=== PATIENT | female | born 1975 | race Caucasian/White ===

== ENCOUNTER 2017-07-20 18:10 | Observation (INO) | payer MEDICAID, OTHER ==
[~2017-07-20] VITALS: Ht 172.7 cm; Wt 62.0 kg
[2017-07-20 18:10] VITALS: BP 142/85; PULSE 70; RESP 16; TEMP 99.2; O2SAT 100
[~2017-07-20 18:10] MED LIST: CETI10 PO; DIFL150T PO; METO50TA PO; SERT50 PO
[2017-07-20] MEDS ORDERED: IOHEXOL 350 MG/ML 10 ML VIAL (for RAD DIAG) IVCONTRAST ONE (18:11)
[2017-07-20 18:45] LABS: BACTERIA, URINE RARE /hpf; BASOPHIL % 0.5 % (0.0-2.0); BLOOD, URINE NEG (NEG); COMMENT (UR) CULT NOT INDICATED; CULTURE IF INDICATED CULT NOT INDICATED; EOSINOPHIL % 0.6 % (0.0-4.0); GLUCOSE,URINE NEG (NEG); HEMATOCRIT 38.1 % (35.0-46.0); HEMO FLAGS DIFF FINAL; KETONE, URINE NEG (NEG); LYMPHOCYTE # 2.4 TH/MM3 (1.0-4.8); MEAN CELL VOLUME 92.8 FL (80.0-100.0); MEAN CORPUSCULAR HEMOGLOBIN 30.5 PG (27.0-34.0); MEAN CORPUSCULAR HGB CONC 32.9 % (32.0-36.0); MONO % 8.4 % (0.0-8.0); NEUT % 56.5 % (16.0-70.0); NITRITE,URINE NEG (NEG); PH, URINE 7.5 (5.0-8.5); PLATELET COUNT 185 TH/MM3 (150-450); RED CELL DISTRIBUTION WIDTH 13.9 % (11.6-17.2); SQUAMOUS EPITHELIAL CELL URINE <1 /hpf (0-5); URINE COLOR YELLOW (YELLW/STRAW); WHITE BLOOD COUNT 7.1 TH/MM3 (4.0-11.0)
--- NOTE | 2017-07-20 18:54 | PD ---
HPI Chief Complaint: Abdominal Pain Time Seen by Provider: 18:46 Travel History International Travel<30 days: No Contact w/Intl Traveler<30days: No Traveled to known affect area: No History of Present Illness HPI 42 year-old female resents the emergency department for evaluation of right upper and lower quadrant abdominal pain with associated nausea, vomiting, and diarrhea worsening over the last week. Patient states that she has history of colitis and is uncertain if this is related to that. She saw a GI on Tuesday and was advised to stop her Zoloft. She spoke with her primary care provider who switched her to Prozac and stopped the Zoloft this week. She is uncertain if this has made her symptoms worse. She does report today that she had an episode where she felt bilateral upper extremity tingling and had a headache and noticed that her heart rate was in the 30s. This resolved on its own. She does take metoprolol for high blood pressure. Patient also has a history of neurocardiogenic syncope, mitral valve prolapse, and depression. Patient has felt chilled without fever. She denies chest pain or tightness. No difficulty breathing. Her brother did pass away "young" from a cardiac event, exactly what she is not sure of. PFSH Past Medical History Depression: Yes Cardiovascular Problems: Yes (MVP) Gastrointestinal Disorders: Yes (IBS) Neurologic: Yes (NEUROCARDOGENIC SYNCOPEY) ?: Not Past Surgical History Section: Yes Other Surgery: Yes (CYST REMOVAL) Social History Alcohol Use: Yes (RARE) Tobacco Use: No Substance Use: No Allergies-Medications (Allergen,Severity, Reaction): Coded Allergies: codeine (Unverified Allergy, Severe, Nausea/Vomiting, 05/31/17) Reported Meds & Prescriptions Reported Meds & Active Scripts Active Reported Fluoxetine (Fluoxetine HCl) 20 Mg Capsule 20 Mg PO DAILY Sulfasalazine 500 Mg Tab 500 Mg PO Q8H Fluticasone Nasal [place] 50 Mcg/Act Naspr 50 Mcg EACH NARE BID 50 mcg/spray Metoprolol Tartrate 50 Mg Tab 50 Mg PO BID Review of Systems Except as stated in HPI: all other systems reviewed are Neg Physical Exam Narrative GENERAL: Well-nourished female patient, in no acute distress. SKIN: Focused skin assessment warm/dry. HEAD: Atraumatic. Normocephalic. EYES: Pupils equal and round. No scleral icterus. No injection or drainage. ENT: No nasal bleeding or discharge. Mucous membranes pink and moist. NECK: Trachea midline. No JVD. CARDIOVASCULAR: Regular rate and irregular rhythm. RESPIRATORY: No accessory muscle use. Clear to auscultation. Breath sounds equal bilaterally. GASTROINTESTINAL: Abdomen soft, nondistended. Lower abdominal tenderness. No rebound and no guarding. Hepatic and splenic margins not palpable. MUSCULOSKELETAL: No obvious deformities. No clubbing. No cyanosis. No edema. NEUROLOGICAL: Awake and alert. No obvious cranial nerve deficits. Motor grossly within normal limits. Normal speech. PSYCHIATRIC: Appropriate mood and affect; insight and judgment normal. Data Data Last Documented VS Vital Signs Date Time Temp Pulse Resp B/P (MAP) Pulse Ox O2 Delivery O2 Flow Rate FiO2 07/20/17 19:01 55 16 135/67 (89) 100 Room Air 07/20/17 18:10 99.2 Orders Orders Complete Blood Count With Diff (07/20/17 18:18) Comprehensive Metabolic Panel (07/20/17 18:18) Urinalysis - C+S If Indicated (07/20/17 18:18) Ed Urine Pregnancytest Poc (07/20/17 18:18) Lipase (07/20/17 18:18) Iv Access Insert/Monitor (07/20/17 18:50) Ct Abd/Pel W Iv Contrast(Rout) (07/20/17 ) Electrocardiogram (07/20/17 19:38) Ckmb (Isoenzyme) Profile (07/20/17 19:38) Prothrombin Time / Inr (Pt) (07/20/17 19:38) Act Partial Throm Time (Ptt) (07/20/17 19:38) Troponin I (07/20/17 19:38) Chest, Single Ap (07/20/17 19:38) Orthostatic Blood Pressure (07/20/17 19:52) Labs Laboratory Tests Test 07/20/17 18:20 07/20/17 20:00 White Blood Count 7.1 TH/MM3 Red Blood Count 4.10 MIL/MM3 Hemoglobin 12.5 GM/DL Hematocrit 38.1 % Mean Corpuscular Volume 92.8 FL Mean Corpuscular Hemoglobin 30.5 PG Mean Corpuscular Hemoglobin Concent 32.9 % Red Cell Distribution Width 13.9 % Platelet Count 185 TH/MM3 Mean Platelet Volume 10.5 FL Neutrophils (%) (Auto) 56.5 % Lymphocytes (%) (Auto) 34.0 % Monocytes (%) (Auto) 8.4 % Eosinophils (%) (Auto) 0.6 % Basophils (%) (Auto) 0.5 % Neutrophils # (Auto) 4.0 TH/MM3 Lymphocytes # (Auto) 2.4 TH/MM3 Monocytes # (Auto) 0.6 TH/MM3 Eosinophils # (Auto) 0.0 TH/MM3 Basophils # (Auto) 0.0 TH/MM3 CBC Comment DIFF FINAL Differential Comment Urine Color YELLOW Urine Turbidity CLEAR Urine pH 7.5 Urine Specific [place] 1.011 Urine Protein NEG mg/dL Urine Glucose (UA) NEG mg/dL Urine Ketones NEG mg/dL Urine Occult Blood NEG Urine Nitrite NEG Urine Bilirubin NEG Urine Urobilinogen LESS THAN 2.0 MG/DL Urine Leukocyte Esterase NEG Urine RBC 1 /hpf Urine WBC LESS THAN 1 /hpf Urine Squamous Epithelial Cells <1 /hpf Urine Bacteria RARE /hpf Microscopic Urinalysis Comment CULT NOT INDICATED Blood Urea Nitrogen 12 MG/DL Creatinine 0.87 MG/DL Random Glucose 79 MG/DL Total Protein 7.2 GM/DL Albumin 4.1 GM/DL Calcium Level 9.0 MG/DL Alkaline Phosphatase 59 U/L Aspartate Amino Transf (AST/SGOT) 10 U/L Alanine Aminotransferase (ALT/SGPT) 18 U/L Total Bilirubin 0.3 MG/DL Sodium Level 140 MEQ/L Potassium Level 3.6 MEQ/L Chloride Level 105 MEQ/L Carbon Dioxide Level 29.1 MEQ/L Anion Gap 6 MEQ/L Estimat Glomerular Filtration Rate 72 ML/MIN Total Creatine Kinase 31 U/L Troponin I LESS THAN 0.02 NG/ML Lipase 115 U/L [facility] Medical Decision Making Medical Screen Exam Complete: Yes Emergency Medical Condition: Yes Medical Record Reviewed: Yes Differential Diagnosis Colitis versus diverticulitis versus appendicitis versus cholecystitis versus gastroenteritis Narrative Course 42 year-old female presents to emergency department for evaluation of right sided abdominal pain. Patient does have lower abdominal pain tenderness to palpation. Due to history of colitis, CT imaging is ordered. Laboratory Tests Test 07/20/17 18:20 07/20/17 20:00 White Blood Count 7.1 TH/MM3 Red Blood Count 4.10 MIL/MM3 Hemoglobin 12.5 GM/DL Hematocrit 38.1 % Mean Corpuscular Volume 92.8 FL Mean Corpuscular Hemoglobin 30.5 PG Mean Corpuscular Hemoglobin Concent 32.9 % Red Cell Distribution Width 13.9 % Platelet Count 185 TH/MM3 Mean Platelet Volume 10.5 FL Neutrophils (%) (Auto) 56.5 % Lymphocytes (%) (Auto) 34.0 % Monocytes (%) (Auto) 8.4 % Eosinophils (%) (Auto) 0.6 % Basophils (%) (Auto) 0.5 % Neutrophils # (Auto) 4.0 TH/MM3 Lymphocytes # (Auto) 2.4 TH/MM3 Monocytes # (Auto) 0.6 TH/MM3 Eosinophils # (Auto) 0.0 TH/MM3 Basophils # (Auto) 0.0 TH/MM3 CBC Comment DIFF FINAL Differential Comment Urine Color YELLOW Urine Turbidity CLEAR Urine pH 7.5 Urine Specific [place] 1.011 Urine Protein NEG mg/dL Urine Glucose (UA) NEG mg/dL Urine Ketones NEG mg/dL Urine Occult Blood NEG Urine Nitrite NEG Urine Bilirubin NEG Urine Urobilinogen LESS THAN 2.0 MG/DL Urine Leukocyte Esterase NEG Urine RBC 1 /hpf Urine WBC LESS THAN 1 /hpf Urine Squamous Epithelial Cells <1 /hpf Urine Bacteria RARE /hpf Microscopic Urinalysis Comment CULT NOT INDICATED Blood Urea Nitrogen 12 MG/DL Creatinine 0.87 MG/DL Random Glucose 79 MG/DL Total Protein 7.2 GM/DL Albumin 4.1 GM/DL Calcium Level 9.0 MG/DL Alkaline Phosphatase 59 U/L Aspartate Amino Transf (AST/SGOT) 10 U/L Alanine Aminotransferase (ALT/SGPT) 18 U/L Total Bilirubin 0.3 MG/DL Sodium Level 140 MEQ/L Potassium Level 3.6 MEQ/L Chloride Level 105 MEQ/L Carbon Dioxide Level 29.1 MEQ/L Anion Gap 6 MEQ/L Estimat Glomerular Filtration Rate 72 ML/MIN Total Creatine Kinase 31 U/L Troponin I LESS THAN 0.02 NG/ML Lipase 115 U/L Prothrombin Time 10.7 SEC Prothromb Time International Ratio 1.0 RATIO Activated Partial Thromboplast Time 27.9 SEC While the patient is waiting for CT to be medically, she begins to have symptoms of hand tingling, headache. Her heart rate is noted to be in the mid 30s. EKG is completely shows SR with frequent PVCs in a bigeminy pattern. This then resolved back to normal sinus rhythm in the symptoms resolve. 2100 Care is assumed by Dr. Horner. Condition: Stable Renate Lemos Jul 20, 2017 18:54
[2017-07-20 19:01] VITALS: BP 135/67; PULSE 55; RESP 16; O2SAT 100
[2017-07-20] MEDS ORDERED: SULF500T3 PO (19:01)
[2017-07-20] MEDS ORDERED: FLUO20CA12 PO (19:01)
[2017-07-20] MEDS ORDERED: METO50TA PO (19:01)
[2017-07-20] MEDS ORDERED: FLUT50SP EACH NARE (19:01)
[2017-07-20 19:02] LABS: ANION GAP 6 MEQ/L (5-15); AST (GOT) 10 U/L (15-37); BICARBONATE 29.1 MEQ/L (21.0-32.0); BLOOD UREA NITROGEN 12 MG/DL (7-18); CHLORIDE 105 MEQ/L (98-107); GLOMERULAR FILTRATION RATE 72 ML/MIN (>89); POTASSIUM 3.6 MEQ/L (3.5-5.1); SODIUM (NA) 140 MEQ/L (136-145)
[2017-07-20 19:05] LABS: ALKALINE PHOSPHATASE 59 U/L (45-117); ALT (GPT) 18 U/L (10-53); TOTAL BILIRUBIN ADULT 0.3 MG/DL (0.2-1.0)
[2017-07-20 20:30] LABS: CREATINE KINASE 31 U/L (26-192)
[2017-07-20 20:55] LABS: APTT (PATIENT) 27.9 SEC (24.3-30.1); PROTHROMBIN TIME - PATIENT 10.7 SEC (9.8-11.6)
--- NOTE | 2017-07-20 21:01 | RADRPT ---
EXAM DATE/TIME: 07/20/2017 19:51 [facility] COMPARISON: No previous studies available for comparison. INDICATIONS : Chest pain and shortness of breath. MEDICAL HISTORY : None. SURGICAL HISTORY : None. ENCOUNTER: Initial ACUITY: 1 day PAIN SCORE: 5/10 LOCATION: chest FINDINGS: A single view of the chest demonstrates the lungs to be symmetrically aerated without evidence of mas s, infiltrate or effusion. The cardiomediastinal contours are unremarkable. Osseous structures are intact. CONCLUSION: Normal examination. Elmer Green MD on July 20, 2017 at 20:59 Board Certified Radiologist. This report was verified electronically.
--- NOTE | 2017-07-20 22:10 | RADRPT ---
EXAM DATE/TIME: 07/20/2017 20:44 [facility] COMPARISON: No previous studies available for comparison. INDICATIONS : Upper and lower quadrant pain, nausea and vomiting. IV CONTRAST: 95 cc Omnipaque 350 (iohexol) IV ORAL CONTRAST: No oral contrast ingested. RADIATION DOSE: 6.76 CTDIvol (mGy) MEDICAL HISTORY : Cardiovascular disease. SURGICAL HISTORY : Cholecystectomy. ENCOUNTER: Initial ACUITY: 2 days PAIN SCALE: 8/10 LOCATION: Lower quadrant and upper quadrant TECHNIQUE: Volumetric scanning of the abdomen and pelvis was performed. Using automated exposure control and adjustment of the mA and/or kV according to patient size, radiation dose was kept as low as reasonably achievable to obtain optimal diagnostic quality images. DICOM format image data is av ailable electronically for review and comparison. FINDINGS: The liver is free of focal lesions. There is mild intrahepatic biliary ductal dilatati on. The patient is status post cholecystectomy. The common bile duct measures 0.9 cm. This may refl ect a reservoir phenomenon following cholecystectomy. The spleen, pancreas, adrenal glands and kidne ys appear normal. The aorta and IVC are unremarkable. Significantly dilated bowel is not seen. Ther e is punctate high density material seen throughout the colon likely related to ingested material suc h as Pepto-Bismol or Milk of Magnesia. The appendix appears normal. Significant inflammatory change is not seen. The left ovary contains several cysts likely related to follicles. These measure up to 1.6 cm. Free fluid is not seen in the pelvis. The lung bases are clear. The bony structures are in tact. CONCLUSION: 1. No acute abnormality is seen. 2. Mild dilatation of the intrahepatic and extrahepatic biliary ducts. This may reflect a reservoir p henomenon following cholecystectomy. This should be correlated clinically and with the patient's lab oratory findings. 3. Punctate high density material seen throughout the colon likely from ingested material. Elmer Green MD on July 20, 2017 at 21:53 Board Certified Radiologist. This report was verified electronically.
--- NOTE | 2017-07-20 22:39 | PD ---
Data Data Last Documented VS Vital Signs Date Time Temp Pulse Resp B/P (MAP) Pulse Ox O2 Delivery O2 Flow Rate FiO2 07/20/17 19:01 55 16 135/67 (89) 100 Room Air 07/20/17 18:10 99.2 Orders Orders Complete Blood Count With Diff (07/20/17 18:18) Comprehensive Metabolic Panel (07/20/17 18:18) Urinalysis - C+S If Indicated (07/20/17 18:18) Ed Urine Pregnancytest Poc (07/20/17 18:18) Lipase (07/20/17 18:18) Iv Access Insert/Monitor (07/20/17 18:50) Ct Abd/Pel W Iv Contrast(Rout) (07/20/17 ) Electrocardiogram (07/20/17 19:38) Ckmb (Isoenzyme) Profile (07/20/17 19:38) Prothrombin Time / Inr (Pt) (07/20/17 19:38) Act Partial Throm Time (Ptt) (07/20/17 19:38) Troponin I (07/20/17 19:38) Chest, Single Ap (07/20/17 19:38) Orthostatic Blood Pressure (07/20/17 19:52) Iohexol 350 Inj (Omnipaque 350 Inj) (07/20/17 18:11) Potassium Chlor 20 Meq Premix (Kcl 20 Me (07/20/17 22:45) Magnesium (Mg) (07/20/17 22:33) Methylprednisolone So Succ Inj (Solumedr (07/20/17 22:45) Labs Laboratory Tests Test 07/20/17 18:20 07/20/17 20:00 White Blood Count 7.1 TH/MM3 Red Blood Count 4.10 MIL/MM3 Hemoglobin 12.5 GM/DL Hematocrit 38.1 % Mean Corpuscular Volume 92.8 FL Mean Corpuscular Hemoglobin 30.5 PG Mean Corpuscular Hemoglobin Concent 32.9 % Red Cell Distribution Width 13.9 % Platelet Count 185 TH/MM3 Mean Platelet Volume 10.5 FL Neutrophils (%) (Auto) 56.5 % Lymphocytes (%) (Auto) 34.0 % Monocytes (%) (Auto) 8.4 % Eosinophils (%) (Auto) 0.6 % Basophils (%) (Auto) 0.5 % Neutrophils # (Auto) 4.0 TH/MM3 Lymphocytes # (Auto) 2.4 TH/MM3 Monocytes # (Auto) 0.6 TH/MM3 Eosinophils # (Auto) 0.0 TH/MM3 Basophils # (Auto) 0.0 TH/MM3 CBC Comment DIFF FINAL Differential Comment Urine Color YELLOW Urine Turbidity CLEAR Urine pH 7.5 Urine Specific [place] 1.011 Urine Protein NEG mg/dL Urine Glucose (UA) NEG mg/dL Urine Ketones NEG mg/dL Urine Occult Blood NEG Urine Nitrite NEG Urine Bilirubin NEG Urine Urobilinogen LESS THAN 2.0 MG/DL Urine Leukocyte Esterase NEG Urine RBC 1 /hpf Urine WBC LESS THAN 1 /hpf Urine Squamous Epithelial Cells <1 /hpf Urine Bacteria RARE /hpf Microscopic Urinalysis Comment CULT NOT INDICATED Blood Urea Nitrogen 12 MG/DL Creatinine 0.87 MG/DL Random Glucose 79 MG/DL Total Protein 7.2 GM/DL Albumin 4.1 GM/DL Calcium Level 9.0 MG/DL Alkaline Phosphatase 59 U/L Aspartate Amino Transf (AST/SGOT) 10 U/L Alanine Aminotransferase (ALT/SGPT) 18 U/L Total Bilirubin 0.3 MG/DL Sodium Level 140 MEQ/L Potassium Level 3.6 MEQ/L Chloride Level 105 MEQ/L Carbon Dioxide Level 29.1 MEQ/L Anion Gap 6 MEQ/L Estimat Glomerular Filtration Rate 72 ML/MIN Total Creatine Kinase 31 U/L Troponin I LESS THAN 0.02 NG/ML Lipase 115 U/L Prothrombin Time 10.7 SEC Prothromb Time International Ratio 1.0 RATIO Activated Partial Thromboplast Time 27.9 SEC MDM Supervised Visit with [facility]: Yes Narrative Course I, Dr. Horner, have reviewed the advance practice practitioner's documentation and am in agreement, met with the patient face to face, made the diagnosis, and the medical decision making was done by me. See her note for further details. Briefly this is a 42-year-old female with history of lymphocytic colitis on sulfasalazine, here for evaluation of worsening abdominal pain over the last few days, diarrhea. On exam she has moderate diffuse tenderness without peritoneal signs. CBC and CMP are unremarkable. All in the emergency department the patient became bradycardic with a heart rate in the 30s and became symptomatic with lightheadedness and bilateral arm paresthesias. EKG was performed and shows the patient is in bigeminy with a ventricular rate of 76 bpm. Blood pressure has been normal to slightly elevated. CT abdomen pelvis: CONCLUSION: 1. No acute abnormality is seen. 2. Mild dilatation of the intrahepatic and extrahepatic biliary ducts. This may reflect a reservoir phenomenon following cholecystectomy. This should be correlated clinically and with the patient's laboratory findings. 3. Punctate high density material seen throughout the colon likely from ingested material. Patient was made aware of all findings. She continues to complain of abdominal discomfort. Case discussed with on-call [facility] physician Dr. Patino. Plan is to provide the patient parenteral potassium, IV fluids, and a dose of IV Solu-Medrol. She will be admitted for overnight observation for telemetry monitoring. Diagnosis Primary Impression: Intractable abdominal pain Additional Impressions: Bradycardia Bigeminy Condition: Stable Pipe Horner MD Jul 20, 2017 22:39
[2017-07-20] MEDS ORDERED: POTASSIUM CHLOR 20 MEQ PREMIX 100 ML IV SCH (22:45)
[2017-07-20] MEDS ORDERED: methylPREDNISolone SOD SUCC 125 MG/2 ML VIAL IV PUSH ONE (22:45)
[2017-07-20] MEDS ORDERED: traMADol HCL 50 MG TAB PO PRN (23:00)
[2017-07-21] VITALS (14 sets, daily range): BP systolic 100–140; BP diastolic 56–75; PULSE 42–98; RESP 18–20; TEMP 98–99; O2SAT 89–99
[2017-07-21] MEDS ORDERED: POTASSIUM CHLORIDE 20 MEQ CONTROLLED RELEASE TAB PO ONE (00:45)
[2017-07-21] MEDS: SODIUM CHLOR 0.9% 1000 ML INJ 1,000 ML IV SCH ×3 (01:03→21:02)
[2017-07-21 08:17] LABS: POTASSIUM 3.9 MEQ/L (3.5-5.1)
--- NOTE | 2017-07-21 08:21 | HHI.HP ---
HPI Service [facility] Hospitalists Primary Care Physician Kerry Upton MD Admission Diagnosis intractable abdominal pain, bradycardia, bigeminy Chief Complaint: Diarrhea, abd pain Travel History International Travel<30 Days: No Contact w/Intl Traveler <30 Da: No Traveled to Known Affected Are: No History of Present Illness Mrs. Bean is a 42 y/o WF with IBS, Lymphocytic colitis, hx of neurocardiogenic syncope on metoprolol and OCD. She presented to the ED at [facility] [place] on 07/20/17 with complaints of worsening diarrhea, abdominal pain, bradycardia and transient paresthesias in her hands. Pt reports that she has had longstanding issues with diarrhea and abdominal pain, since around age 19. She was previously diagnosed with IBS. She notes that it was not unusual for her to have anywhere from 2-10 BMs per day. Pt was seen by [facility] earlier this year and underwent evaluation with EGD and colonoscopy on 03/31/[address] Monzon. The findings of the procedure were normal but random biopsy from the colon indicated possible lymphocytic colitis. Biopsy of the duodenum was negative for celiac disease. She was started on Sulfasalazine 500mg TID but states that she had not noticed much improvement. She was still having upwards of 10 BMs per day typically. No associated hematochezia or melena. She does have associated abdominal cramping and sharp pain, mainly in the lower abdomen. These pains only temporarily improved with BMs. She went to see a different GI physician, Dr. Flores, on Tuesday, 07/18, because she started having increased diarrhea and more right sided abdominal pain which was new. She states that he recommended changing her Zoloft to something else as this could be a cause for worsening symptoms related to her lymphocytic colitis. She was switched to Prozac which she started yesterday. He also recommended that she also take Pepto Bismol two tablets 3-5 times per day and she started taking that yesterday as well. Yesterday afternoon she reported having an episode where she felt bilateral upper extremity tingling and had a headache and noticed that her heart rate was in the 30s. This resolved on its own fairly quickly. This prompted her to go to the ED for further evaluation. She had an EKG in the ED which noted sinus rhythm in the 70's with frequent PVCs, in a bigeminy pattern. Her telemetry in the CDU has not indicated any cardiac dysrhythmias. She had a CT Abd/pelvis in the ED which noted mild dilation of the intrahepatic and extrahepatic ducts, possible related to a reservoir phenomenon following cholecystectomy, and punctate high density material seen throughout the colon, likely from ingested material. She has not had any diarrhea since prior to admission to the ED. She continues to have right sided abdominal tenderness and nausea but no vomiting. Pt has been afebrile. She denies any recent antibiotic use. Denies any recent travel. No new medications other than what she started yesterday. Pt also reports an intentional weight loss of around 40lbs since 11/2016. She started on a gluten free/dairy free/paleo diet. Review of Systems Constitutional: COMPLAINS OF: Weight loss (intentional), DENIES: Fever, Chills Eyes: DENIES: Vision loss Ears, nose, mouth, throat: DENIES: Vertigo Respiratory: DENIES: Cough, Shortness of breath Cardiovascular: COMPLAINS OF: Palpitations, DENIES: Chest pain, Dyspnea on Exertion, Lower Extremity Edema Gastrointestinal: COMPLAINS OF: Abdominal pain, Diarrhea, GERD, Nausea, Vomiting, DENIES: Black stools, Bloody stools, Constipation Musculoskeletal: DENIES: Joint pain Integumentary: DENIES: Rash Hematologic/lymphatic: DENIES: Lymphadenopathy Immunologic/allergic: DENIES: Urticaria Neurologic: COMPLAINS OF: Paresthesias, DENIES: Headache, Speech Problems, Tremor Psychiatric: DENIES: Confusion, Depression Past Family Social History Past Medical History HTN IBS Lymphocytic colitis Neurocardiogenic syncope Mitral valve prolapse OCD Past Surgical History EGD/colonoscopy (03/31/2017) with Dr. Monzon --> Normal EGD and colonoscopy. 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 Physical Exam Vital Signs Vital Signs Date Time Temp Pulse Resp B/P (MAP) Pulse Ox O2 Delivery O2 Flow Rate FiO2 07/21/17 04:00 98.1 66 20 100/62 (75) 98 07/21/17 03:41 86 07/21/17 01:23 79 07/21/17 00:26 07/21/17 00:17 68 18 124/75 (91) 71 18 129/57 (81) 71 18 140/60 (86) 07/21/17 00:00 98.6 50 18 118/70 (86) 98 07/20/17 19:01 55 16 135/67 (89) 100 Room Air 07/20/17 18:10 99.2 70 16 142/85 (104) 100 Room Air Physical Exam GENERAL: This is a well-nourished, well-developed patient, in no apparent distress. HEENT: Atraumatic. Normocephalic. No temporal or scalp tenderness. No scleral icterus. Airway patent. NECK: Trachea midline, supple, nontender. CARDIO: Regular. RESP: CTA bilaterally. No wheezes, rales, or rhonchi. ABD: +BS, soft, mild right sided tenderness, nondistended. EXT: Extremities without clubbing, cyanosis, or edema. NEURO: Awake and alert. Motor and sensory grossly within normal limits. Normal speech. Laboratory Laboratory Tests Test 07/20/17 18:20 07/20/17 20:00 07/21/17 06:58 White Blood Count 7.1 Red Blood Count 4.10 Hemoglobin 12.5 Hematocrit 38.1 Mean Corpuscular Volume 92.8 Mean Corpuscular Hemoglobin 30.5 Mean Corpuscular Hemoglobin Concent 32.9 Red Cell Distribution Width 13.9 Platelet Count 185 Mean Platelet Volume 10.5 Neutrophils (%) (Auto) 56.5 Lymphocytes (%) (Auto) 34.0 Monocytes (%) (Auto) 8.4 Eosinophils (%) (Auto) 0.6 Basophils (%) (Auto) 0.5 Neutrophils # (Auto) 4.0 Lymphocytes # (Auto) 2.4 Monocytes # (Auto) 0.6 Eosinophils # (Auto) 0.0 Basophils # (Auto) 0.0 CBC Comment DIFF FINAL Differential Comment Urine Color YELLOW Urine Turbidity CLEAR Urine pH 7.5 Urine Specific [place] 1.011 Urine Protein NEG Urine Glucose (UA) NEG Urine Ketones NEG Urine Occult Blood NEG Urine Nitrite NEG Urine Bilirubin NEG Urine Urobilinogen LESS THAN 2.0 Urine Leukocyte Esterase NEG Urine RBC 1 Urine WBC LESS THAN 1 Urine Squamous Epithelial Cells <1 Urine Bacteria RARE Microscopic Urinalysis Comment CULT NOT INDICATED Blood Urea Nitrogen 12 Creatinine 0.87 Random Glucose 79 Total Protein 7.2 Albumin 4.1 Calcium Level 9.0 Alkaline Phosphatase 59 Aspartate Amino Transf (AST/SGOT) 10 Alanine Aminotransferase (ALT/SGPT) 18 Total Bilirubin 0.3 Sodium Level 140 Potassium Level 3.6 Chloride Level 105 Carbon Dioxide Level 29.1 Anion Gap 6 Estimat Glomerular Filtration Rate 72 Magnesium Level 2.1 Total Creatine Kinase 31 Troponin I LESS THAN 0.02 Lipase 115 Prothrombin Time 10.7 Prothromb Time International Ratio 1.0 Activated Partial Thromboplast Time 27.9 Result Diagram: 07/20/17181907/20/171819 Imaging Last Impressions Chest X-Ray 07/20/171937 Signed Impressions: Service Date/Time: Thursday, July 20, 2017 19:51 - CONCLUSION: Normal examination. Elmer Green MD Septic Shock Reassessment Heart: Regular rate and rhythm Lungs: Clear Skin: Warm Caprini VTE Risk Assessment Caprini VTE Risk Assessment: No/Low Risk (score <= 1) Caprini Risk Assessment Model Point Value = 1 Point Value = 2 Point Value = 3 Point Value = 5 Age 41-60 Minor surgery BMI > 25 kg/m2 Swollen legs Varicose veins or History of unexplained or recurrent spontaneous Oral contraceptives or hormone replacement Sepsis (< 1 month) Serious lung disease, including pneumonia (< 1 month) Abnormal pulmonary function Acute myocardial infarction Congestive heart failure (< 1 month) History of inflammatory bowel disease Medical patient at bed rest Age 61-74 Arthroscopic surgery Major open surgery (> 45 min) Laparoscopic surgery (> 45 min) Malignancy Confined to bed (> 72 hours) Immobilizing plaster cast Central venous access Age >= 75 History of VTE Family history of VTE Factor V Leiden Prothrombin [id number] Lupus anticoagulant Anticardiolipin antibodies Elevated serum homocysteine Heparin-induced thrombocytopenia Other congenital or acquired thrombophilia Stroke (< 1 month) Elective arthroplasty Hip, pelvis, or leg fracture Acute spinal cord injury (< 1 month) Prophylaxis Regimen Total Risk Factor Score Risk Level Prophylaxis Regimen 0-1 Low Early ambulation 2 Moderate Order ONE of the following: *Sequential Compression Device (SCD) *Heparin 5000 units SQ BID 3-4 Higher Order ONE of the following medications: *Heparin 5000 units SQ TID *Enoxaparin/Lovenox 40 mg SQ daily (WT < 150 kg, CrCl > 30 mL/min) *Enoxaparin/Lovenox 30 mg SQ daily (WT < 150 kg, CrCl > 10-29 mL/min) *Enoxaparin/Lovenox 30 mg SQ BID (WT < 150 kg, CrCl > 30 mL/min) AND/OR *Sequential Compression Device (SCD) 5 or more Highest Order ONE of the following medications: *Heparin 5000 units SQ TID (Preferred with Epidurals) *Enoxaparin/Lovenox 40 mg SQ daily (WT < 150 kg, CrCl > 30 mL/min) *Enoxaparin/Lovenox 30 mg SQ daily (WT < 150 kg, CrCl > 10-29 mL/min) *Enoxaparin/Lovenox 30 mg SQ BID (WT < 150 kg, CrCl > 30 mL/min) AND *Sequential Compression Device (SCD) Assessment and Plan Problem List: (1) Intractable abdominal pain ICD Codes: R10.9 - Unspecified abdominal pain Status: Acute Plan: - Pt is a 42 y/o female with IBS, Lymphocytic colitis, hx of neurocardiogenic syncope on metoprolol and OCD. - She presented to the ED at [facility] – [place], [place] on 07/20/17 with complaints of worsening diarrhea, abdominal pain, bradycardia and transient paresthesias in her hands. - Pt has had longstanding issues with diarrhea and abdominal pain, since around age 19. She was previously diagnosed with IBS. It was not unusual for her to have anywhere from 2-10 BMs per day. Previous EGD/colonoscopy on 03/31/17 noted a normal EGD/colonoscopy but random biopsy from the colon indicated possible lymphocytic colitis. Biopsy of the duodenum was negative for celiac disease. She was started on Sulfasalazine 500mg TID but has not noticed much improvement. She was still having upwards of 10 BMs per day with associated abdominal cramping and sharp pain, mainly in the lower abdomen. She went to see a different GI physician, Dr. Flores, on Tuesday, 07/18, because she started having increased diarrhea and more right sided abdominal pain, and intermittent vomiting which was new. She was recommended changing her Zoloft to something else as this could be a cause for worsening symptoms related to her lymphocytic colitis, and she was switched to Prozac which she started yesterday. He also recommended that she also take Pepto Bismol two tablets 3-5 times per day and she started taking that yesterday as well. - She had a CT Abd/pelvis in the ED which noted mild dilation of the intrahepatic and extrahepatic ducts, possible related to a reservoir phenomenon following cholecystectomy, and punctate high density material seen throughout the colon, likely from ingested material. - She has not had any diarrhea since prior to admission to the ED. She continues to have right sided abdominal tenderness and nausea but no vomiting. - No recent antibiotic use, recent travel, or new medications other than what she started yesterday. - Tramadol PRN pain - Cont. IVF - Resume Pepto Bismol for lymphocytic colitis, this was just started yesterday so hasn't had enough time to see effects yet. - Check stool studies and if negative, pt may use Imodium PRN - Stop Sulfasalazine. - Diet as tolerated - Supportive care - DVT prophylaxis with SCDs (2) Diarrhea ICD Codes: R19.7 - Diarrhea, unspecified Status: Chronic Plan: - See above. (3) Palpitations ICD Codes: R00.2 - Palpitations Status: Acute Plan: - Yesterday afternoon she reported having an episode where she felt bilateral upper extremity tingling and had a headache and noticed that her heart rate was in the 30s. This resolved on its own fairly quickly. - This prompted her to go to the ED for further evaluation. - She had an EKG in the ED which noted sinus rhythm in the 70's with frequent PVCs, in a bigeminy pattern. - Her telemetry in the CDU has not indicated any cardiac dysrhythmias. - Pt has been on Metoprolol 50mg BID for quite some time for neurocardiogenic syncope. She also reports a 40lb intentional weight loss since 11/2016 - Orthostatic vital signs were negative. - Pt wants to continue on the Metoprolol. - We will resume this medication at a lower dose, 12.5mg BID, and monitor HR on telemetry. (4) IBS (irritable bowel syndrome) ICD Codes: K58.9 - Irritable bowel syndrome without diarrhea Status: Chronic Plan: - See above. (5) Lymphocytic colitis ICD Codes: K52.832 - Lymphocytic colitis Status: Chronic Plan: - See above. (6) Neurocardiogenic syncope ICD Codes: R55 - Syncope and collapse Assessment and Plan Patient examined. Assessment and plan formulated with Kaila Jones PA-C. I agree with the above. hx neurocardiogenic syncope hx. ibs/lymphocytic colitis diarrhea/silverio....diarrhea better. now bigeminy. felt alot of palpitations. increase bb to 1/2 outpt dose. If no better in AM then ask cardiology to see her. Problem Qualifiers (1) IBS (irritable bowel syndrome): Qualified Codes: K58.0 - Irritable bowel syndrome with diarrhea Kaila Jones Jul 21, 2017 08:21 Henri Acevedo MD Jul 21, 2017 16:15
[2017-07-21] MEDS ORDERED: sulfaSALAzine 500 MG TAB PO SCH (08:45)
[2017-07-21] MEDS ORDERED: PILL SPLITTER OTHER PRN (10:00)
[2017-07-21] MEDS ORDERED: METOPROLOL TARTRATE 25 MG TAB PO SCH (10:00)
[2017-07-21] MEDS: BISMUTH SUBSALICYLATE 240 ML BTL PO SCH ×3 (10:20→17:47)
[2017-07-21] MEDS: FLUTICASONE PROPIONATE 50 MCG/ACT 16 GM NASAL SPRAY EACH NARE SCH ×2 (10:21→21:03)
[2017-07-21] MEDS: FLUoxetine HCL 20 MG CAP PO SCH (10:22)
--- NOTE | 2017-07-21 14:43 | EKG ---
Date Performed: 07/20/2017 Time Performed: 19:45:13 PTAGE: 42 years EKG: Sinus rhythm WITH FREQUENT VENTRICULAR PREMATURE COMPLEXES IN A BIGEMINAL PATTERN NONSPECIFIC T-WAVE ABNORMALITY ABNORMAL RHYTHM ECG NO PREVIOUS TRACING DOCTOR: Spencer Moore Interpretating Date/Time 07/21/2017 14:37:24
[2017-07-21] MEDS: METOPROLOL TARTRATE 25 MG TAB PO SCH (21:00)
[2017-07-22] VITALS (11 sets, daily range): BP systolic 109–156; BP diastolic 60–73; PULSE 58–100; RESP 16–18; TEMP 97.2–98.2; O2SAT 95–100
[2017-07-22 07:57] LABS: BICARBONATE 23.9 MEQ/L (21.0-32.0); POTASSIUM 3.9 MEQ/L (3.5-5.1)
[2017-07-22] MEDS: METOPROLOL TARTRATE 25 MG TAB PO SCH ×2 (08:05→22:21)
[2017-07-22] MEDS: FLUoxetine HCL 20 MG CAP PO SCH (08:05)
[2017-07-22] MEDS: FLUTICASONE PROPIONATE 50 MCG/ACT 16 GM NASAL SPRAY EACH NARE SCH ×2 (08:06→21:00)
[2017-07-22] MEDS: BISMUTH SUBSALICYLATE 240 ML BTL PO SCH ×3 (08:06→18:38)
[2017-07-22] MEDS: SODIUM CHLOR 0.9% 1000 ML INJ 1,000 ML IV SCH ×2 (08:08→22:21)
--- NOTE | 2017-07-22 09:25 | HHI.PR ---
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 Objective Vitals Vital Signs Date Time Temp Pulse Resp B/P (MAP) Pulse Ox O2 Delivery O2 Flow Rate FiO2 07/22/17 08:29 98.2 63 18 138/60 (86) 95 07/22/17 07:41 66 07/22/17 04:03 98.0 74 18 109/73 (85) 100 07/22/17 04:03 100 07/22/17 00:40 99 Nasal Cannula 2.00 07/22/17 00:40 99 07/22/17 00:14 68 07/21/17 23:47 98.9 43 18 109/56 (73) 89 07/21/17 20:15 90 07/21/17 20:12 98.7 42 18 97 129/62 (84) 128/71 (90) 07/21/17 16:26 98.0 56 18 109/64 (79) 98 07/21/17 15:05 87 07/21/17 12:51 98 07/21/17 12:00 99.0 46 18 115/58 (77) 99 07/22/17 07/22/17 07/23/17 15:00 23:00 07:00 Intake Total 1000 ml Balance 1000 ml IV Total 1000 ml Result Diagram: 07/20/17 1820 07/22/17 0630 Other Results Laboratory Tests Test 07/20/17 18:20 07/20/17 20:00 07/21/17 06:58 07/22/17 06:30 White Blood Count 7.1 TH/MM3 Red Blood Count 4.10 MIL/MM3 Hemoglobin 12.5 GM/DL Hematocrit 38.1 % Mean Corpuscular Volume 92.8 FL Mean Corpuscular Hemoglobin 30.5 PG Mean Corpuscular Hemoglobin Concent 32.9 % Red Cell Distribution Width 13.9 % Platelet Count 185 TH/MM3 Mean Platelet Volume 10.5 FL Neutrophils (%) (Auto) 56.5 % Lymphocytes (%) (Auto) 34.0 % Monocytes (%) (Auto) 8.4 % Eosinophils (%) (Auto) 0.6 % Basophils (%) (Auto) 0.5 % Neutrophils # (Auto) 4.0 TH/MM3 Lymphocytes # (Auto) 2.4 TH/MM3 Monocytes # (Auto) 0.6 TH/MM3 Eosinophils # (Auto) 0.0 TH/MM3 Basophils # (Auto) 0.0 TH/MM3 CBC Comment DIFF FINAL Differential Comment Urine Color YELLOW Urine Turbidity CLEAR Urine pH 7.5 Urine Specific [place] 1.011 Urine Protein NEG mg/dL Urine Glucose (UA) NEG mg/dL Urine Ketones NEG mg/dL Urine Occult Blood NEG Urine Nitrite NEG Urine Bilirubin NEG Urine Urobilinogen LESS THAN 2.0 MG/DL Urine Leukocyte Esterase NEG Urine RBC 1 /hpf Urine WBC LESS THAN 1 /hpf Urine Squamous Epithelial Cells <1 /hpf Urine Bacteria RARE /hpf Microscopic Urinalysis Comment CULT NOT INDICATED Blood Urea Nitrogen 12 MG/DL 14 MG/DL 10 MG/DL Creatinine 0.87 MG/DL 0.77 MG/DL 0.60 MG/DL Random Glucose 79 MG/DL 132 MG/DL 84 MG/DL Total Protein 7.2 GM/DL Albumin 4.1 GM/DL Calcium Level 9.0 MG/DL 8.9 MG/DL 8.1 MG/DL Alkaline Phosphatase 59 U/L Aspartate Amino Transf (AST/SGOT) 10 U/L Alanine Aminotransferase (ALT/SGPT) 18 U/L Total Bilirubin 0.3 MG/DL Sodium Level 140 MEQ/L 138 MEQ/L 142 MEQ/L Potassium Level 3.6 MEQ/L 3.9 MEQ/L 3.9 MEQ/L Chloride Level 105 MEQ/L 107 MEQ/L 111 MEQ/L Carbon Dioxide Level 29.1 MEQ/L 24.0 MEQ/L 23.9 MEQ/L Anion Gap 6 MEQ/L 7 MEQ/L 7 MEQ/L Estimat Glomerular Filtration Rate 72 ML/MIN 83 ML/MIN 111 ML/MIN Magnesium Level 2.1 MG/DL 2.0 MG/DL Total Creatine Kinase 31 U/L Troponin I LESS THAN 0.02 NG/ML Lipase 115 U/L Prothrombin Time 10.7 SEC Prothromb Time International Ratio 1.0 RATIO Activated Partial Thromboplast Time 27.9 SEC Thyroid Stimulating Hormone 3rd Gen 0.859 uIU/ML Phosphorus Level 2.8 MG/DL Imaging Last Impressions Chest X-Ray 07/20/171937 Signed Impressions: Service Date/Time: Thursday, July 20, 2017 19:51 - CONCLUSION: Normal examination. Elmer Green MD Objective Remarks General: NAD, AAOx3 Chest: CTA Cardiac: Irregular Abd: +BS, soft ND/NT Ext: No edema A/P Problem List: (1) Intractable abdominal pain ICD Codes: R10.9 - Unspecified abdominal pain Status: Acute Plan: - Pt is a 42 y/o female with IBS, Lymphocytic colitis, hx of neurocardiogenic syncope on metoprolol and OCD. - She presented to the ED at [facility] [place] on 07/20/17 with complaints of worsening diarrhea, abdominal pain, bradycardia and transient paresthesias in her hands. - Pt has had longstanding issues with diarrhea and abdominal pain, since around age 19. She was previously diagnosed with IBS. It was not unusual for her to have anywhere from 2-10 BMs per day. Previous EGD/colonoscopy on 03/31/17 noted a normal EGD/colonoscopy but random biopsy from the colon indicated possible lymphocytic colitis. Biopsy of the duodenum was negative for celiac disease. She was started on Sulfasalazine 500mg TID but has not noticed much improvement. She was still having upwards of 10 BMs per day with associated abdominal cramping and sharp pain, mainly in the lower abdomen. She went to see a different GI physician, Dr. Flores, on Tuesday, 07/18, because she started having increased diarrhea and more right sided abdominal pain, and intermittent vomiting which was new. She was recommended changing her Zoloft to something else as this could be a cause for worsening symptoms related to her lymphocytic colitis, and she was switched to Prozac which she started yesterday. He also recommended that she also take Pepto Bismol two tablets 3-5 times per day and she started taking that yesterday as well. - She had a CT Abd/pelvis in the ED which noted mild dilation of the intrahepatic and extrahepatic ducts, possible related to a reservoir phenomenon following cholecystectomy, and punctate high density material seen throughout the colon, likely from ingested material. - She has not had any diarrhea since prior to admission to the ED. She continues to have right sided abdominal tenderness and nausea but no vomiting. - No recent antibiotic use, recent travel, or new medications other than what she started yesterday. - Tramadol PRN pain - Cont. IVF - Cont Pepto Bismol for lymphocytic colitis, pt has had symptomatic improvement. - Stool studies are pending. - Stop Sulfasalazine. - Diet as tolerated - Supportive care - DVT prophylaxis with SCDs (2) Diarrhea ICD Codes: R19.7 - Diarrhea, unspecified Status: Chronic Plan: - Improving - See above. (3) Palpitations ICD Codes: R00.2 - Palpitations Status: Acute Plan: - The afternoon prior to admission she reported having an episode where she felt bilateral upper extremity tingling and had a headache and noticed that her heart rate was in the 30s. This resolved on its own fairly quickly. - This prompted her to go to the ED for further evaluation. - She had an EKG in the ED which noted sinus rhythm in the 70's with frequent PVCs, in a bigeminy pattern. - She has had noted Bigeminy and trigeminy noted on telemetry yesterday afternoon and overnight - Pt has been on Metoprolol 50mg BID for quite some time for neurocardiogenic syncope. She also reports a 40lb intentional weight loss since 11/2016 - Orthostatic vital signs were negative. - Cont. Metoprolol 25mg po BID - Consult Cardiology (4) IBS (irritable bowel syndrome) ICD Codes: K58.9 - Irritable bowel syndrome without diarrhea Status: Chronic Plan: - See above. (5) Lymphocytic colitis ICD Codes: K52.832 - Lymphocytic colitis Status: Chronic Plan: - See above. (6) Neurocardiogenic syncope ICD Codes: R55 - Syncope and collapse Assessment and Plan Patient examined. Assessment and plan formulated with Kaila Jones PA-C. I agree with the above. GI issues stable Await cardiology eval and w/up. echo and stress. Problem Qualifiers (1) IBS (irritable bowel syndrome): Qualified Codes: K58.0 - Irritable bowel syndrome with diarrhea Kaila Jones Jul 22, 2017 09:25 Henri Acevedo MD Jul 22, 2017 16:19
[2017-07-22] MEDS ORDERED: INFLUENZA VIRUS VACCINE (QUADRIVALENT) 0.5 ML SYR IM ONE (10:00)
--- NOTE | 2017-07-22 10:29 | PD.CONS ---
HPI Service CV Consult Requested By Reason for Consult palpitations Primary Care Physician Kerry Upton MD History of Present Illness Her with IBS, neurocardiogenic syncope, and palpitations for the last 20 years. She states the last two years it has been getting more frequent. She was seeing Dr. Katz and had Holter 1.5 years ago with no significant finding. She denies chest pain or shortness if breath. She does not smoke. She has no family h/o of cardiac disease (Ramana Thompson) Review of Systems Consitutional: DENIES: Fatigue, Fever, Chills, Weight gain, Weight loss Eyes: DENIES: Amaurosis Fugax, Change in vision HEENT: DENIES: Lightheadedness, Change in hearing Cardiovascular: COMPLAINS OF: Palpitations Gastrointestinal: DENIES: Nausea, Vomiting, Change in bowel habits, Reflux, Bloody stools, Melena Genitourinary: DENIES: Urinary incontinence, Difficulty voiding Integumentary: DENIES: Rash Neurologic: DENIES: Tingling or numbness, Memory problems, Poor Balance, Stroke symptoms Musculoskeletal: DENIES: Joint pain, Muscle pain, Limited range of motion, Back pain Psychiatric: DENIES: Anxiety, Depression, Sleep disturbances Hematologic: DENIES: Bruising tendencies, Bleeding tendencies Endocrine: DENIES: Weight gain, Weight loss, Thyroid disease (Ramana Thompson ) Past Family Social History Allergies: Coded Allergies: codeine (Unverified Allergy, Severe, Nausea/Vomiting, 05/31/17) Past Medical History HTN IBS Lymphocytic colitis Neurocardiogenic syncope Mitral valve prolapse OCD Past Surgical History EGD/colonoscopy (03/31/2017) with Dr. Monzon --> Normal EGD and colonoscopy. Pathology was suspicious for lymphocytic colitis Cesarian section Cholecystectomy Ganglion cyst removal from wrist Reported Medications Reported Meds & Active Scripts Active Reported Fluoxetine (Fluoxetine HCl) 20 Mg Capsule 20 Mg PO DAILY Sulfasalazine 500 Mg Tab 500 Mg PO Q8H Fluticasone Nasal [place] 50 Mcg/Act Naspr 50 Mcg EACH NARE BID 50 mcg/spray Metoprolol Tartrate 50 Mg Tab 50 Mg PO BID Active Ordered Medications Current Medications Medications (Trade) Dose Ordered Sig/Radha Route Start Time Stop Time Status Last Admin (Ultram) 50 mg Q8H PRN PO 07/20/17 23:00 Sodium Chloride 1,000 ml @ 100 mls/hr Q10H IV 07/21/17 00:45 07/22/17 08:08 (PROzac) 20 mg DAILY PO 07/21/17 10:00 07/22/17 08:05 (Flonase Horace Spr) 1 spray BID EACH NARE 07/21/17 10:00 07/22/17 08:06 (Pepto-Bismol Liq) 30 ml TID PO 07/21/17 10:00 07/22/17 08:06 (Pill Splitter) 1 ea UNSCH PRN OTHER 07/21/17 10:00 (Lopressor) 25 mg Q12HR PO 07/21/17 21:00 07/22/17 08:05 Family History see HPI Social History see HPI Denies any alcohol or illicit drug use (Ramana Thompson) Physical Exam Vital Signs Vital Signs Date Time Temp Pulse Resp B/P (MAP) Pulse Ox O2 Delivery O2 Flow Rate FiO2 07/22/17 08:29 98.2 63 18 138/60 (86) 95 07/22/17 07:41 66 07/22/17 04:03 98.0 74 18 109/73 (85) 100 07/22/17 04:03 100 07/22/17 00:40 99 Nasal Cannula 2.00 07/22/17 00:40 99 07/22/17 00:14 68 07/21/17 23:47 98.9 43 18 109/56 (73) 89 07/21/17 20:15 90 07/21/17 20:12 98.7 42 18 97 129/62 (84) 128/71 (90) 07/21/17 16:26 98.0 56 18 109/64 (79) 98 07/21/17 15:05 87 07/21/17 12:51 98 07/21/17 12:00 99.0 46 18 115/58 (77) 99 Physical Exam GENERAL: Well-nourished, well-developed patient in no apparent distress. NECK: No JVD. No carotid bruit. CARDIOVASCULAR: Regularly irregular. S1/S2 no murmur, rub, or gallop. RESPIRATORY: No accessory muscle use. Clear to auscultation. Breath sounds equal bilaterally. GASTROINTESTINAL: Abdomen soft, non-tender, nondistended. MUSCULOSKELETAL: Extremities without clubbing, cyanosis, or edema. Laboratory Laboratory Tests Test 07/22/17 06:30 Blood Urea Nitrogen 10 Creatinine 0.60 Random Glucose 84 Calcium Level 8.1 Phosphorus Level 2.8 Magnesium Level 2.0 Sodium Level 142 Potassium Level 3.9 Chloride Level 111 Carbon Dioxide Level 23.9 Anion Gap 7 Estimat Glomerular Filtration Rate 111 Date/Time Source Procedure Growth Status 07/21/17 13:20 Stool Stool Cryptosporidium Exam Pending Received 07/21/17 13:20 Stool Stool Giardia Antigen (ALEX) Pending Received (Ramana hTompson) Result Diagram: 07/20/17 1820 07/22/17 0630 Assessment and Plan Problem List: (1) Palpitations ICD Codes: R00.2 - Palpitations Status: Acute Assessment and Plan Palpitations - continue metoprolol and telemetry for now. She can probably be d/ c'd home and plan outpatient Holter (Ramana Thompson) Assessment and Plan 0-------- r/o cardiomyopathy & ischemia 2d echo lexiscan if negative, bb and DC home FU in OPD (Aydin Haynes MD) Ramana Thompson Jul 22, 2017 10:29 Aydin Haynes MD Jul 22, 2017 11:26
[2017-07-22] MEDS ORDERED: REGADENOSON INJ 0.4 MG/5 ML SYR ONE (16:01)
--- NOTE | 2017-07-22 17:36 | RADRPT ---
EXAM DATE/TIME: 07/22/2017 14:45 [facility] COMPARISON: No previous studies available for comparison. INDICATIONS : Mid chest pain for one day. Abnormal EKG. DOSE: 26.1 mCi Tc99m Myoview at stress. 8.6 mCi Tc99m Myoview at rest. 0.4 mg Lexiscan STRESS SYMPTOMS: Chest pain, shortness of breath, nausea. EJECTION FRACTION: > 70% MEDICAL HISTORY : Hypertension. Mitral valve prolapse. SURGICAL HISTORY : section. Cholecystectomy. ENCOUNTER: Initial ACUITY: 1 day PAIN SCALE: 6/10 LOCATION: Midsternal chest TECHNIQUE: The patient underwent pharmacologic stress with infusion of prescribed dose. Continuous ECG tracing was monitored during stress. Gated SPECT imaging was performed after stress and conventional SPECT i maging was performed at rest. The examination was performed on a SPECT/CT scanner, both attenuation and non-corrected datasets were reviewed. FINDINGS: DISTRIBUTION: The maximum perfused segment at stress is in the lateral wall. PERFUSION STUDY: Minimal focal decreased perfusion at stress in the mid anterior wall. GATED STUDY: There is intact wall motion and thickening without hypokinetic or dyskinetic segments. CONCLUSION: 1. Small focal region of decreased stress perfusion in the mid anterior wall. 2. No significant focal wall motion abnormality with normal ejection fraction of 70%. RISK CATEGORY: Low (<1% Annual Mortality Rate) Korey Willard MD on July 22, 2017 at 17:31 Board Certified Radiologist. This report was verified electronically.
[2017-07-23] MEDS: SODIUM CHLOR 0.9% 1000 ML INJ 1,000 ML IV SCH (02:45)
[2017-07-23 03:37] VITALS: BP 101/51; PULSE 70; RESP 16; TEMP 98.6; O2SAT 99
[2017-07-23 04:00] VITALS: PULSE 68
[2017-07-23 08:00] VITALS: PULSE 68; PULSE 96
[2017-07-23 08:29] VITALS: BP 110/62; PULSE 68; RESP 20; TEMP 98.2; O2SAT 96
--- NOTE | 2017-07-23 08:31 | HHI.PR ---
Subjective Remarks Pt reports some palpitations last night but seems to be less than previously Pt had Lexiscan yesterday She reports 3 soft stools yesterday and abd pain is improved Objective Vitals Vital Signs Date Time Temp Pulse Resp B/P (MAP) Pulse Ox O2 Delivery O2 Flow Rate FiO2 07/23/17 04:00 68 07/23/17 03:37 98.6 70 16 101/51 (68) 99 07/22/17 23:51 98.1 77 16 119/68 (85) 98 07/22/17 22:45 76 07/22/17 20:12 58 07/22/17 20:11 97.2 80 18 156/66 (96) 99 07/22/17 15:36 73 07/22/17 12:14 98.0 63 18 128/60 (82) 96 07/22/17 08:29 98.2 63 18 138/60 (86) 95 Result Diagram: 07/20/17 1820 07/22/17 0630 Other Results Laboratory Tests Test 07/22/17 06:30 Blood Urea Nitrogen 10 MG/DL Creatinine 0.60 MG/DL Random Glucose 84 MG/DL Calcium Level 8.1 MG/DL Phosphorus Level 2.8 MG/DL Magnesium Level 2.0 MG/DL Sodium Level 142 MEQ/L Potassium Level 3.9 MEQ/L Chloride Level 111 MEQ/L Carbon Dioxide Level 23.9 MEQ/L Anion Gap 7 MEQ/L Estimat Glomerular Filtration Rate 111 ML/MIN Imaging Last Impressions Myocardial Perfusion Scan Nuc Med 07/22/17 0000 Signed Impressions: Service Date/Time: Saturday, July 22, 2017 14:45 - CONCLUSION: 1. Small focal region of decreased stress perfusion in the mid anterior wall. 2. No significant focal wall motion abnormality with normal ejection fraction of 70%%. RISK CATEGORY: Low (<1%% Annual Mortality Rate) Korey Willard MD Chest X-Ray 07/20/17 1938 Signed Impressions: Service Date/Time: Thursday, July 20, 2017 19:51 - CONCLUSION: Normal examination. Elmer Green MD Abdomen/Pelvis CT 07/20/17 0000 Signed Impressions: Service Date/Time: Thursday, July 20, 2017 20:44 - CONCLUSION: 1. No acute abnormality is seen. 2. Mild dilatation of the intrahepatic and extrahepatic biliary ducts. This may reflect a reservoir phenomenon following cholecystectomy. This should be correlated clinically and with the patient's laboratory findings. 3. Punctate high density material seen throughout the colon likely from ingested material. Elmer Green MD Last Impressions Chest X-Ray 07/20/171937 Signed Impressions: Service Date/Time: Thursday, July 20, 2017 19:51 - CONCLUSION: Normal examination. Elmer Green MD Objective Remarks General: NAD, AAOx3 Chest: CTA Cardiac: Irregular Abd: +BS, soft ND/NT Ext: No edema A/P Problem List: (1) Intractable abdominal pain ICD Codes: R10.9 - Unspecified abdominal pain Status: Acute Plan: - Pt is a 42 y/o female with IBS, Lymphocytic colitis, hx of neurocardiogenic syncope on metoprolol and OCD. - She presented to the ED at [facility] on 07/20/17 with complaints of worsening diarrhea, abdominal pain, bradycardia and transient paresthesias in her hands. - Pt has had longstanding issues with diarrhea and abdominal pain, since around age 19. She was previously diagnosed with IBS. It was not unusual for her to have anywhere from 2-10 BMs per day. Previous EGD/colonoscopy on 03/31/17 noted a normal EGD/colonoscopy but random biopsy from the colon indicated possible lymphocytic colitis. Biopsy of the duodenum was negative for celiac disease. She was started on Sulfasalazine 500mg TID but has not noticed much improvement. She was still having upwards of 10 BMs per day with associated abdominal cramping and sharp pain, mainly in the lower abdomen. She went to see a different GI physician, Dr. Flores, on Tuesday, 07/18, because she started having increased diarrhea and more right sided abdominal pain, and intermittent vomiting which was new. She was recommended changing her Zoloft to something else as this could be a cause for worsening symptoms related to her lymphocytic colitis, and she was switched to Prozac which she started yesterday. He also recommended that she also take Pepto Bismol two tablets 3-5 times per day and she started taking that yesterday as well. - She had a CT Abd/pelvis in the ED which noted mild dilation of the intrahepatic and extrahepatic ducts, possible related to a reservoir phenomenon following cholecystectomy, and punctate high density material seen throughout the colon, likely from ingested material. - She has not had any diarrhea since prior to admission to the ED. She continues to have right sided abdominal tenderness and nausea but no vomiting. - No recent antibiotic use, recent travel, or new medications other than what she started yesterday. - Tramadol PRN pain - Cont Pepto Bismol for lymphocytic colitis, pt has had symptomatic improvement. - Stop Sulfasalazine. - Diet as tolerated - Pt will need to followup with her PCP, Dr. Upton, in 1 week. - She will continue the Pepto-Bismol ii TID and stop the Sulfasalazine. - She can followup with her GI physician as well. (2) Diarrhea ICD Codes: R19.7 - Diarrhea, unspecified Status: Chronic Plan: - Improving - See above. (3) Palpitations ICD Codes: R00.2 - Palpitations Status: Acute Plan: - The afternoon prior to admission she reported having an episode where she felt bilateral upper extremity tingling and had a headache and noticed that her heart rate was in the 30s. This resolved on its own fairly quickly. - This prompted her to go to the ED for further evaluation. - She had an EKG in the ED which noted sinus rhythm in the 70's with frequent PVCs, in a bigeminy pattern. - She has had noted Bigeminy and trigeminy noted on telemetry yesterday afternoon and overnight - Pt has been on Metoprolol 50mg BID for quite some time for neurocardiogenic syncope. She also reports a 40lb intentional weight loss since 11/2016 - Orthostatic vital signs were negative. - Cont. Metoprolol 25mg po BID - Appreciate Cardiology consultation - Linda (07/22) --> Small focal region of decreased stress perfusion in the mid anterior wall. No significant focal wall motion abnormality with normal ejection fraction of 70%. - 2D echo is pending. Pt will need to followup with [facility] Cardiology for results. - She will continue on the decreased dose of Metoprolol 25mg po BID - Pt may need outpt Holter monitor - She has been cleared for discharge by Cardiology. (4) IBS (irritable bowel syndrome) ICD Codes: K58.9 - Irritable bowel syndrome without diarrhea Status: Chronic Plan: - See above. (5) Lymphocytic colitis ICD Codes: K52.832 - Lymphocytic colitis Status: Chronic Plan: - See above. (6) Neurocardiogenic syncope ICD Codes: R55 - Syncope and collapse Assessment and Plan Patient examined. Assessment and plan formulated with Kaila Jones PA-C. I agree with the above. Problem Qualifiers (1) IBS (irritable bowel syndrome): Qualified Codes: K58.0 - Irritable bowel syndrome with diarrhea Kaila Jones Jul 23, 2017 08:31 Henri Acevedo MD Jul 23, 2017 16:41
--- NOTE | 2017-07-23 09:11 | PD.CARD.PN ---
Subjective Subjective Remarks no CV complaints Objective Medications Current Medications Medications (Trade) Dose Ordered Sig/Radha Route Start Time Stop Time Status Last Admin (Ultram) 50 mg Q8H PRN PO 07/20/17 23:00 Sodium Chloride 1,000 ml @ 100 mls/hr Q10H IV 07/21/17 00:45 07/22/17 22:21 (PROzac) 20 mg DAILY PO 07/21/17 10:00 07/22/17 08:05 (Flonase Horace Spr) 1 spray BID EACH NARE 07/21/17 10:00 07/22/17 08:06 (Pepto-Bismol Liq) 30 ml TID PO 07/21/17 10:00 07/22/17 18:38 (Pill Splitter) 1 ea UNSCH PRN OTHER 07/21/17 10:00 (Lopressor) 25 mg Q12HR PO 07/21/17 21:00 07/22/17 22:21 Vital Signs / I&O Vital Signs Date Time Temp Pulse Resp B/P (MAP) Pulse Ox O2 Delivery O2 Flow Rate FiO2 07/23/17 08:29 98.2 68 20 110/62 (78) 96 07/23/17 04:00 68 07/23/17 03:37 98.6 70 16 101/51 (68) 99 07/22/17 23:51 98.1 77 16 119/68 (85) 98 07/22/17 22:45 76 07/22/17 20:12 58 07/22/17 20:11 97.2 80 18 156/66 (96) 99 07/22/17 15:36 73 07/22/17 12:14 98.0 63 18 128/60 (82) 96 I/O 07/22/17 07/22/17 07/22/17 07/23/17 07/23/17 07/23/17 07:00 15:00 23:00 07:00 15:00 23:00 Intake Total 1000 ml 2700 ml Balance 1000 ml 2700 ml IV Total 1000 ml 2700 ml Physical Exam GENERAL: Well-nourished, well-developed patient. SKIN: Warm and dry. HEAD: Normocephalic. EYES: No scleral icterus. No injection or drainage. NECK: Supple, trachea midline. No JVD or lymphadenopathy. CARDIOVASCULAR: Regular rate and rhythm without murmurs, gallops, or rubs. RESPIRATORY: Breath sounds equal bilaterally. No accessory muscle use. GASTROINTESTINAL: Abdomen soft, non-tender, nondistended. EXTREMITIES: No cyanosis, or edema. NEUROLOGICAL: Awake, alert, and oriented x 3. Non-focal. Imaging Last Impressions Myocardial Perfusion Scan Nuc Med 07/22/17 0000 Signed Impressions: Service Date/Time: Saturday, July 22, 2017 14:45 - CONCLUSION: 1. Small focal region of decreased stress perfusion in the mid anterior wall. 2. No significant focal wall motion abnormality with normal ejection fraction of 70%%. RISK CATEGORY: Low (<1%% Annual Mortality Rate) Korey Willard MD Chest X-Ray 07/20/171937 Signed Impressions: Service Date/Time: Thursday, July 20, 2017 19:51 - CONCLUSION: Normal examination. Elmer Green MD Abdomen/Pelvis CT 07/20/17 0000 Signed Impressions: Service Date/Time: Thursday, July 20, 2017 20:44 - CONCLUSION: 1. No acute abnormality is seen. 2. Mild dilatation of the intrahepatic and extrahepatic biliary ducts. This may reflect a reservoir phenomenon following cholecystectomy. This should be correlated clinically and with the patient's laboratory findings. 3. Punctate high density material seen throughout the colon likely from ingested material. Elmer Green MD Assessment and Plan Problem List: (1) Palpitations ICD Codes: R00.2 - Palpitations Status: Acute Plan: Lexiscan results noted. No active ischemia, low risk. Continue medical management Echo pending D/C with outpatient Holter F/U with cardiology upon discharge Refer to Dr. Lo for evaluation Sign off Anastacio Doshi MD Jul 23, 2017 09:10
[2017-07-23] MEDS: FLUoxetine HCL 20 MG CAP PO SCH (10:57)
[2017-07-23] MEDS: METOPROLOL TARTRATE 25 MG TAB PO SCH (10:57)
[2017-07-23] MEDS: BISMUTH SUBSALICYLATE 240 ML BTL PO SCH ×2 (10:58→13:00)
[2017-07-23] MEDS: FLUTICASONE PROPIONATE 50 MCG/ACT 16 GM NASAL SPRAY EACH NARE SCH (10:58)
[2017-07-23 12:06] VITALS: BP 104/72; PULSE 113; RESP 20; TEMP 97.9; O2SAT 95
[2017-07-23] MEDS ORDERED: PEPT262T2 PO (15:19)
[2017-07-23] MEDS ORDERED: METO25TA3 PO (15:20)
--- NOTE | 2017-07-23 15:23 | HHI.DCPOC ---
Discharge Care Plan Diagnosis: (1) Intractable abdominal pain (2) Diarrhea (3) Palpitations (4) Bigeminy (5) IBS (irritable bowel syndrome) (6) Lymphocytic colitis Goals to Promote Your Health - Continue on Metoprolol 25mg twice daily - Followup with Dr. Haynes in 1-2 weeks, call for an appt - You can followup on the results of your 2D echo with Dr. Haynes - Continue Pepto-Bismol 2 tablets three times daily as previously prescribed by Dr. Flores - Stop the Sulfasalazine - Followup with Dr. Kerry Upton in 1 week, call for an appt. Directions to Meet Your Goals Take your medications as prescribed Follow your dietary instruction Follow activity as directed Keep your appointments as scheduled Take your immunizations and boosters as scheduled If your symptoms worsen call your PCP, if no PCP go to Urgent Care Center or Emergency Room Smoking is Dangerous to Your Health. Avoid second hand smoke Call the 24-hour hour crisis hotline for domestic abuse at Kaila Jones Jul 23, 2017 15:22
--- NOTE | 2017-07-23 16:55 | HHI.DS ---
Discharge Summary Admission Date Jul 20, 2017 at 22:37 Discharge Date: Jul 23, 2017 Admitting Diagnosis intractable abdominal pain, bradycardia, bigeminy (1) Intractable abdominal pain Diagnosis: Principal ICD Codes: R10.9 - Unspecified abdominal pain Status: Acute (2) Diarrhea Diagnosis: Secondary ICD Codes: R19.7 - Diarrhea, unspecified Status: Chronic (3) Palpitations Diagnosis: Secondary ICD Codes: R00.2 - Palpitations Status: Acute (4) IBS (irritable bowel syndrome) Diagnosis: Secondary ICD Codes: K58.9 - Irritable bowel syndrome without diarrhea Status: Chronic (5) Lymphocytic colitis Diagnosis: Secondary ICD Codes: K52.832 - Lymphocytic colitis Status: Chronic (6) Neurocardiogenic syncope Diagnosis: Secondary ICD Codes: R55 - Syncope and collapse Consultants Dr. Aydin Haynes - Cardiology Brief History Mrs. Bean is a 42 y/o WF with IBS, Lymphocytic colitis, hx of neurocardiogenic syncope on metoprolol and OCD. She presented to the ED at [facility] on 07/20/17 with complaints of worsening diarrhea, abdominal pain, bradycardia and transient paresthesias in her hands. Pt reports that she has had longstanding issues with diarrhea and abdominal pain, since around age 19. She was previously diagnosed with IBS. She notes that it was not unusual for her to have anywhere from 2-10 BMs per day. Pt was seen by [facility] earlier this year and underwent evaluation with EGD and colonoscopy on 03/31/[address] Monzon. The findings of the procedure were normal but random biopsy from the colon indicated possible lymphocytic colitis. Biopsy of the duodenum was negative for celiac disease. She was started on Sulfasalazine 500mg TID but states that she had not noticed much improvement. She was still having upwards of 10 BMs per day typically. No associated hematochezia or melena. She does have associated abdominal cramping and sharp pain, mainly in the lower abdomen. These pains only temporarily improved with BMs. She went to see a different GI physician, Dr. Flores, on Tuesday, 07/18, because she started having increased diarrhea and more right sided abdominal pain which was new. She states that he recommended changing her Zoloft to something else as this could be a cause for worsening symptoms related to her lymphocytic colitis. She was switched to Prozac which she started yesterday. He also recommended that she also take Pepto Bismol two tablets 3-5 times per day and she started taking that yesterday as well. Yesterday afternoon she reported having an episode where she felt bilateral upper extremity tingling and had a headache and noticed that her heart rate was in the 30s. This resolved on its own fairly quickly. This prompted her to go to the ED for further evaluation. She had an EKG in the ED which noted sinus rhythm in the 70's with frequent PVCs, in a bigeminy pattern. Her telemetry in the CDU has not indicated any cardiac dysrhythmias. She had a CT Abd/pelvis in the ED which noted mild dilation of the intrahepatic and extrahepatic ducts, possible related to a reservoir phenomenon following cholecystectomy, and punctate high density material seen throughout the colon, likely from ingested material. She has not had any diarrhea since prior to admission to the ED. She continues to have right sided abdominal tenderness and nausea but no vomiting. Pt has been afebrile. She denies any recent antibiotic use. Denies any recent travel. No new medications other than what she started yesterday. Pt also reports an intentional weight loss of around 40lbs since 11/2016. She started on a gluten free/dairy free/paleo diet. CBC/BMP: 07/20/17 1820 07/22/17 0630 Significant Findings Laboratory Tests Test 07/20/17 18:20 07/20/17 20:00 07/21/17 06:58 07/22/17 06:30 Monocytes (%) (Auto) 8.4 % (0.0-8.0) Urine Bacteria RARE /hpf (NONE) Aspartate Amino Transf (AST/SGOT) 10 U/L (15-37) Estimat Glomerular Filtration Rate 72 ML/MIN (>89) 83 ML/MIN (>89) Troponin I LESS THAN 0.02 NG/ML Random Glucose 132 MG/DL (74-106) Calcium Level 8.1 MG/DL (8.5-10.1) Chloride Level 111 MEQ/L (98-107) Imaging Last Impressions Myocardial Perfusion Scan Nuc Med 07/22/17 0000 Signed Impressions: Service Date/Time: Saturday, July 22, 2017 14:45 - CONCLUSION: 1. Small focal region of decreased stress perfusion in the mid anterior wall. 2. No significant focal wall motion abnormality with normal ejection fraction of 70%%. RISK CATEGORY: Low (<1%% Annual Mortality Rate) Korey Willard MD Chest X-Ray 07/20/17 1938 Signed Impressions: Service Date/Time: Thursday, July 20, 2017 19:51 - CONCLUSION: Normal examination. Elmer Green MD Abdomen/Pelvis CT 07/20/17 0000 Signed Impressions: Service Date/Time: Thursday, July 20, 2017 20:44 - CONCLUSION: 1. No acute abnormality is seen. 2. Mild dilatation of the intrahepatic and extrahepatic biliary ducts. This may reflect a reservoir phenomenon following cholecystectomy. This should be correlated clinically and with the patient's laboratory findings. 3. Punctate high density material seen throughout the colon likely from ingested material. Elmer Geren MD PE at Discharge General: NAD, AAOx3 Chest: CTA Cardiac: Irregular Abd: +BS, soft ND/NT Ext: No edema Hospital Course Abdominal pain/Diarrhea Pt is a 42 y/o female with IBS, Lymphocytic colitis, hx of neurocardiogenic syncope on metoprolol and OCD. She presented to the ED at [facility] on 07/20/17 with complaints of worsening diarrhea, abdominal pain, bradycardia and transient paresthesias in her hands. Pt has had longstanding issues with diarrhea and abdominal pain, since around age 19. She was previously diagnosed with IBS. It was not unusual for her to have anywhere from 2-10 BMs per day. Previous EGD/ colonoscopy on 03/31/17 noted a normal EGD/colonoscopy but random biopsy from the colon indicated possible lymphocytic colitis. Biopsy of the duodenum was negative for celiac disease. She was started on Sulfasalazine 500mg TID but has not noticed much improvement. She was still having upwards of 10 BMs per day with associated abdominal cramping and sharp pain, mainly in the lower abdomen. She went to see a different GI physician, Dr. Flores, on Tuesday, 07/18, because she started having increased diarrhea and more right sided abdominal pain, and intermittent vomiting which was new. She was recommended changing her Zoloft to something else as this could be a cause for worsening symptoms related to her lymphocytic colitis, and she was switched to Prozac which she started yesterday. He also recommended that she also take Pepto Bismol two tablets 3-5 times per day and she started taking that yesterday as well. She had a CT Abd/pelvis in the ED which noted mild dilation of the intrahepatic and extrahepatic ducts, possible related to a reservoir phenomenon following cholecystectomy, and punctate high density material seen throughout the colon, likely from ingested material. She has not had any diarrhea since prior to admission to the ED. She continues to have right sided abdominal tenderness and nausea but no vomiting. No recent antibiotic use, recent travel, or new medications other than what she started the day prior to admission. Pt was continued on Pepto Bismol for lymphocytic colitis and she had symptomatic improvement. The Sulfasalazine was stopped. Pts diarrhea and abdominal pain did improve during the admission. Pt will need to followup with her PCP, Dr. Upton, in 1 week. She will continue the Pepto-Bismol ii TID and stop the Sulfasalazine. She can followup with her GI physician as well. Palpitations/Bigeminy The afternoon prior to admission she reported having an episode where she felt bilateral upper extremity tingling and had a headache and noticed that her heart rate was in the 30s. This resolved on its own fairly quickly. This prompted her to go to the ED for further evaluation. She had an EKG in the ED which noted sinus rhythm in the 70's with frequent PVCs, in a bigeminy pattern. She has had noted Bigeminy and trigeminy noted on telemetry during the admission. Pt had been on Metoprolol 50mg BID for quite some time for neurocardiogenic syncope. She also reports a 40lb intentional weight loss since 11/2016. Orthostatic vital signs were negative. She as continued on Metoprolol 25mg po BID. Cardiology was consulted. Lexiscan (07/22) --> Small focal region of decreased stress perfusion in the mid anterior wall. No significant focal wall motion abnormality with normal ejection fraction of 70%. 2D echo was performed and results are pending. Pt will need to followup with [facility] for results. She will continue on the decreased dose of Metoprolol 25mg po BID. Pt may need outpt Holter monitor. She has been cleared for discharge by Cardiology. Pt will followup with Dr. Haynes in 1-2 weeks. Pt Condition on Discharge: Stable Discharge Disposition: Discharge Home Discharge Instructions DIET: Follow Instructions for: Heart Healthy Diet Activities you can perform: Regular-No Restrictions Follow up Referrals: Cardiology - [address] Haynes PCP Follow-up - [address] Kerry Upton New Medications: Metoprolol Tartrate (Metoprolol Tartrate) 25 Mg Tab 25 MG PO Q12HR for pvc, #60 TAB Continued Medications: Bismuth Subsalicylate (Pepto-Bismol) 262 Mg Tab 524 MG PO TID PRN for lymphocytic colitis for 30 Days, TAB 0 Refills Do not exceed 8 doses in 24 hours. Fluoxetine (Fluoxetine) 20 Mg Capsule 20 MG PO DAILY, #30 CAP 0 Refills Fluticasone Nasal [place] (Fluticasone Nasal [place]) 50 Mcg/Act Naspr 50 MCG EACH NARE BID for Allergy Management, #1 BOTTLE 0 Refills 50 mcg/spray Discontinued Medications: Metoprolol Tartrate (Metoprolol Tartrate) 50 Mg Tab 50 MG PO BID, #60 TAB 0 Refills Sulfasalazine (Sulfasalazine) 500 Mg Tab 500 MG PO Q8H, #90 TAB 0 Refills Kaila Jones Jul 23, 2017 16:55
--- NOTE | 2017-07-23 17:46 | ECHRPT ---
Indication: CARDIOMYOPATHY CONCLUSIONS Normal left ventricular size. Wall thickness is normal. Low normal LV systolic function (EF 50-55%) Mild mitral valve regurgitation. There is mild tricuspid valve regurgitation. The estimated pulmonary arterial pressure is 30 mmHg. BP: 138 / 60 HR: 63 Rhythm: Other MEASUREMENTS (Male / Female) Normal Values Technical Quality:Good 2D ECHO LV Diastolic Diameter PLAX 4.0 cm 4.2 - 5.9 / 3.9 - 5.3 cm LV Systolic Diameter PLAX 3.1 cm IVS Diastolic Thickness 0.9 cm 0.6 - 1.0 / 0.6 - 0.9 cm LVPW Diastolic Thickness 0.8 cm 0.6 - 1.0 / 0.6 - 0.9 cm LV Relative Wall Thickness 0.4 RV Internal Dim ED PLAX 1.7 cm LA Systolic Diameter LX 3.1 cm 3.0 - 4.0 / 2.7 - 3.8 cm M-MODE Aortic Root Diameter MM 2.9 cm AV Cusp Separation MM 1.6 cm DOPPLER MR Peak Velocity 491.0 cm/s MR Peak Gradient 96.4 mmHg Mitral E Point Velocity 92.5 cm/s Mitral A Point Velocity 70.3 cm/s Mitral E to A Ratio 1.3 TR Peak Velocity 251.0 cm/s TR Peak Gradient 25.2 mmHg FINDINGS LEFT VENTRICLE Normal left ventricular size. Wall thickness is normal. The left ventricular systolic function is low normal with an estimated ejection fraction in the rang e of 50- 55%. RIGHT VENTRICLE Normal right ventricular size and systolic function. LEFT ATRIUM The left atrial size is normal. RIGHT ATRIUM The right atrial size is normal. ATRIAL SEPTUM Normal atrial septal thickness without atrial level shunting by limited color doppler interrogation. AORTA The aortic root and proximal ascending aorta are normal in size on limited imaging. MITRAL VALVE Mild mitral valve regurgitation. AORTIC VALVE Trileaflet aortic valve. No aortic valve stenosis or regurgitation. TRICUSPID VALVE There is mild tricuspid valve regurgitation. The estimated pulmonary arterial pressure is 30 mmHg. PULMONARY VALVE The pulmonary valve is not well visualized. VESSELS The inferior vena cava is normal in size. PERICARDIUM No pericardial effusion. Franky Katz MD, FACC (Electronically Signed) Final Date:23 July 2017 17:45
== END 2017-07-23 16:18 | disposition home or self-care (01) ==
LOC: NEPD 18:10 → NEDA 22:37 → NEPGCP 07-21 00:23
PROVIDERS: ADMIT Hospitalist; ATTEND Hospitalist
DX: R10.11 Right upper quadrant pain (principal); R10.31 Right lower quadrant pain; R19.7 Diarrhea, unspecified; R00.2 Palpitations; R00.8 Other abnormalities of heart beat; K52.832 Lymphocytic colitis; R11.2 Nausea with vomiting, unspecified; R51 Headache; R20.2 Paresthesia of skin; I34.1 Nonrheumatic mitral (valve) prolapse; R55 Syncope and collapse; I10 Essential (primary) hypertension; R11.0 Nausea; Z23 Encounter for immunization
CPT/HCPCS: 71010; 74177; 78452; 80048; 80053; 81001; 82550; 83690; 83735; 84100; 84443; 84484; 84703; 85025; 85610; 85730; 87328; 87329; 90471; 90686; 93005; 93017; 93306; 96361; 96374; 96375; A9502; G0008; G0378; J2785; J2930; J3480; J7030; Q2038; Q9967

== ENCOUNTER 2018-01-06 20:48 | Observation (INO) | payer OTHER ==
[~2018-01-06] VITALS: Ht 172.7 cm; Wt 67.0 kg
[~2018-01-06 20:48] MED LIST changes: -CETI10 PO; -DIFL150T PO; +FLUO20CA12 PO; +FLUT50SP EACH NARE; +METO25TA3 PO; -METO50TA PO; +PEPT262T2 PO; -SERT50 PO
[2018-01-06 20:56] VITALS: BP 144/86; PULSE 94; RESP 16; TEMP 99.1; O2SAT 99
--- NOTE | 2018-01-06 21:23 | PD ---
HPI Chief Complaint: Chest Pain Time Seen by Provider: 21:08 Travel History International Travel<30 days: No Contact w/Intl Traveler<30days: No Traveled to known affect area: No History of Present Illness HPI 42-year-old female presents to the emergency department for evaluation of left- sided chest pain that worsened today. She states she's been having intermittent issues for a week now. She states that the pain is intermittent. She has no alleviating or exacerbating factors. She states the pain right now is 0/10. She states she has associated shortness of breath and palpitations. Patient has history of mitral valve prolapse, neurocardiogenic syncope, IBS, lymphocytic colitis. 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 Patient states she also feels fatigued. Moderate severity. PFSH Past Medical History Depression: Yes Heart Rhythm Problems: Yes (bigeminy) Cardiovascular Problems: Yes (neuro cardiogenic syncope) Gastrointestinal Disorders: Yes (IBS) Neurologic: Yes (headaches) Past Surgical History Section: Yes Cholecystectomy: Yes Other Surgery: Yes (CYST REMOVAL) Social History Alcohol Use: No Tobacco Use: No Substance Use: No Allergies-Medications (Allergen,Severity, Reaction): Coded Allergies: codeine (Unverified Allergy, Severe, Nausea/Vomiting, 01/06/18) Reported Meds & Prescriptions Reported Meds & Active Scripts Active Reported Doxepin (Doxepin HCl) Unknown Strength Cap Unknown Dose PO HS Gabapentin Unknown Strength Cap Unknown Dose PO HS Propranolol (Propranolol HCl) Unknown Strength Tab Unknown Dose PO Q8HR Fluoxetine (Fluoxetine HCl) 20 Mg Tab 30 Mg PO DAILY Pepto-Bismol (Bismuth Subsalicylate) 262 Mg Tab 524 Mg PO TID PRN 30 Days Do not exceed 8 doses in 24 hours. Fluticasone Nasal [place] 50 Mcg/Act Naspr 50 Mcg EACH NARE BID 50 mcg/spray Review of Systems Except as stated in HPI: all other systems reviewed are Neg Physical Exam Narrative GENERAL: Well-nourished, well-developed female patient, afebrile. SKIN: Focused skin assessment warm/dry. HEAD: Normocephalic. EYES: No scleral icterus. No injection or drainage. NECK: Supple, trachea midline. No JVD or lymphadenopathy. CARDIOVASCULAR: Regular rate and rhythm without murmurs, gallops, or rubs. Bilateral radial and pedal pulses are 2+. RESPIRATORY: Breath sounds equal bilaterally. No accessory muscle use. Lungs sounds are clear to auscultation. GASTROINTESTINAL: Abdomen soft, non-tender, nondistended. MUSCULOSKELETAL: No cyanosis, or edema. BACK: Nontender without obvious deformity. No CVA tenderness. Data Data Last Documented VS Vital Signs Date Time Temp Pulse Resp B/P (MAP) Pulse Ox O2 Delivery O2 Flow Rate FiO2 01/06/18 21:30 85 16 112/56 (74) 99 Room Air 01/06/18 20:56 99.1 Orders Orders Electrocardiogram (01/06/18 21:16) Ckmb (Isoenzyme) Profile (01/06/18 21:16) Complete Blood Count With Diff (01/06/18 21:16) Comprehensive Metabolic Panel (01/06/18 21:16) Magnesium (Mg) (01/06/18 21:16) Prothrombin Time / Inr (Pt) (01/06/18 21:16) Act Partial Throm Time (Ptt) (01/06/18 21:16) Troponin I (01/06/18 21:16) Chest, Single Ap (01/06/18 21:16) Ecg Monitoring (01/06/18 21:16) Bilateral Bp Monitoring (01/06/18 21:16) Iv Access Insert/Monitor (01/06/18 21:16) Oximetry (01/06/18 21:16) Oxygen Administration (01/06/18 21:16) Aspirin Chew (Aspirin Chew) (01/06/18 21:30) Sodium Chloride 0.9% Flush (Ns Flush) (01/06/18 21:30) Ed Urine Pregnancytest Poc (01/06/18 21:23) Phosphorus (Po4) (01/06/18 21:49) Potassium Phosphate (K-Phos) (01/06/18 23:15) Labs Laboratory Tests Test 01/06/18 19:25 White Blood Count 9.6 TH/MM3 Red Blood Count 4.23 MIL/MM3 Hemoglobin 13.3 GM/DL Hematocrit 38.8 % Mean Corpuscular Volume 91.7 FL Mean Corpuscular Hemoglobin 31.4 PG Mean Corpuscular Hemoglobin Concent 34.3 % Red Cell Distribution Width 13.0 % Platelet Count 188 TH/MM3 Mean Platelet Volume 9.3 FL Neutrophils (%) (Auto) 63.1 % Lymphocytes (%) (Auto) 28.2 % Monocytes (%) (Auto) 7.1 % Eosinophils (%) (Auto) 1.0 % Basophils (%) (Auto) 0.6 % Neutrophils # (Auto) 6.1 TH/MM3 Lymphocytes # (Auto) 2.7 TH/MM3 Monocytes # (Auto) 0.7 TH/MM3 Eosinophils # (Auto) 0.1 TH/MM3 Basophils # (Auto) 0.1 TH/MM3 CBC Comment DIFF FINAL Differential Comment Prothrombin Time 9.7 SEC Prothromb Time International Ratio 1.0 RATIO Activated Partial Thromboplast Time 24.4 SEC Blood Urea Nitrogen 12 MG/DL Creatinine 0.84 MG/DL Random Glucose 118 MG/DL Total Protein 7.7 GM/DL Albumin 3.9 GM/DL Calcium Level 9.5 MG/DL Magnesium Level 2.1 MG/DL Alkaline Phosphatase 58 U/L Aspartate Amino Transf (AST/SGOT) 18 U/L Alanine Aminotransferase (ALT/SGPT) 18 U/L Total Bilirubin 0.1 MG/DL Sodium Level 140 MEQ/L Potassium Level 3.4 MEQ/L Chloride Level 107 MEQ/L Carbon Dioxide Level 24.8 MEQ/L Anion Gap 8 MEQ/L Estimat Glomerular Filtration Rate 75 ML/MIN Phosphorus Level 2.2 MG/DL Total Creatine Kinase 45 U/L Troponin I LESS THAN 0.02 NG/ML MDM Medical Decision Making Medical Screen Exam Complete: Yes Emergency Medical Condition: Yes Medical Record Reviewed: Yes Differential Diagnosis ACS versus cardiac arrhythmia versus electrolyte abnormality versus pneumonia versus pneumothorax Narrative Course 42-year-old female presents to the emergency department for evaluation of sharp left-sided chest pain. EKG shows sinus rhythm with occasional PVCs, inverted T waves in V1, V2, V3. CBC, BMP, CK, troponin, magnesium, PTT, PT/INR ordered and pending. Chest x-ray is ordered and pending. CBC is unremarkable. BMP shows no acute abnormality. CK is 45. Troponin is less than 0.02. Magnesium is 2.1. Phosphorus is 2.2. Coags are unremarkable. Patient's phosphorus was replaced. She will be admitted to the chest pain center for further evaluation. She verbalizes agreement this. Diagnosis Primary Impression: Chest pain Qualified Codes: R07.9 - Chest pain, unspecified Additional Impression: Frequent PVCs Admitting Information Admitting Physician Requests: Mary MoralesP Jan 06, 2018 21:23
[2018-01-06] MEDS ORDERED: DOXE25CA2 PO (21:28)
[2018-01-06] MEDS ORDERED: GABA300C5 PO (21:28)
[2018-01-06] MEDS ORDERED: FLUO1TAB3 PO (21:28)
[2018-01-06] MEDS ORDERED: PROP10TA6 PO (21:28)
[2018-01-06 21:29] VITALS: BP_SYST 112; BP_SYST 137; BP_DIAS 56; BP_DIAS 63; PULSE 84
[2018-01-06 21:30] VITALS: BP 112/56; PULSE 85; RESP 16; O2SAT 99
[2018-01-06] MEDS ORDERED: SODIUM CHLORIDE 0.9% FLUSH 10 ML FLUSH IVF PRN (21:30)
[2018-01-06] MEDS ORDERED: ASPIRIN 81 MG CHEW TAB PO ONE (21:30)
[2018-01-06 21:38] LABS: AUTOMATED NEUTROPHIL # 6.1 TH/MM3 (1.8-7.7); BASOPHIL # 0.1 TH/MM3 (0-0.2); BASOPHIL % 0.6 % (0.0-2.0); EOSINOPHIL # 0.1 TH/MM3 (0-0.4); HEMATOCRIT 38.8 % (35.0-46.0); HEMOGLOBIN 13.3 GM/DL (11.6-15.3); LYMPH % 28.2 % (9.0-44.0); LYMPHOCYTE # 2.7 TH/MM3 (1.0-4.8); MEAN CELL VOLUME 91.7 FL (80.0-100.0); MEAN CORPUSCULAR HEMOGLOBIN 31.4 PG (27.0-34.0); MEAN CORPUSCULAR HGB CONC 34.3 % (32.0-36.0); MEAN PLATELET VOLUME 9.3 FL (7.0-11.0); MONO % 7.1 % (0.0-8.0); MONOCYTE # 0.7 TH/MM3 (0-0.9); NEUT % 63.1 % (16.0-70.0); PLATELET COUNT 188 TH/MM3 (150-450); RED BLOOD COUNT 4.23 MIL/MM3 (4.00-5.30); WHITE BLOOD COUNT 9.6 TH/MM3 (4.0-11.0)
[2018-01-06 21:55] LABS: PROTHROMBIN TIME - PATIENT 9.7 SEC (9.8-11.6)
[2018-01-06 22:06] LABS: ALT (GPT) 18 U/L (10-53)
[2018-01-06 22:10] LABS: ALBUMIN 3.9 GM/DL (3.4-5.0); ALKALINE PHOSPHATASE 58 U/L (45-117); AST (GOT) 18 U/L (15-37); BICARBONATE 24.8 MEQ/L (21.0-32.0); BLOOD UREA NITROGEN 12 MG/DL (7-18); CALCIUM 9.5 MG/DL (8.5-10.1); CHLORIDE 107 MEQ/L (98-107); CREATININE 0.84 MG/DL (0.50-1.00); GLOMERULAR FILTRATION RATE 75 ML/MIN (>89); GLUCOSE,RANDOM 118 MG/DL (74-106); MAGNESIUM 2.1 MG/DL (1.5-2.5); SODIUM (NA) 140 MEQ/L (136-145); TOTAL BILIRUBIN ADULT 0.1 MG/DL (0.2-1.0); TOTAL PROTEIN 7.7 GM/DL (6.4-8.2); TROPONIN I LESS THAN 0.02 NG/ML (0.02-0.05)
--- NOTE | 2018-01-06 22:11 | RADRPT ---
EXAM DATE/TIME: 01/06/2018 21:21 [place] COMPARISON: CHEST SINGLE AP, July 20, 2017, 19:51. INDICATIONS : Chest pain and shortness of breath with history of cardiac history. MEDICAL HISTORY : Hypertension. Mitral valve prolapse Neuro cardiacgenic syncope SURGICAL HISTORY : Cholecystectomy. section. ENCOUNTER: Initial ACUITY: 1 day PAIN SCORE: 7/10 LOCATION: upper chest FINDINGS: A single view of the chest demonstrates the lungs to be symmetrically aerated without evidence of mas s, infiltrate or effusion. The cardiomediastinal contours are unremarkable. Osseous structures are intact. CONCLUSION: No acute disease. Yoan Bolden MD on January 06, 2018 at 22:08 Board Certified Radiologist. This report was verified electronically.
[2018-01-06] MEDS ORDERED: POTASSIUM PHOSPHATE MONOBASIC 500 MG TAB PO ONE (23:15)
[2018-01-06] MEDS ORDERED: SODIUM CHLORIDE 0.9% FLUSH 10 ML FLUSH IV FLUSH PRN (23:15)
[2018-01-06 23:39] VITALS: BP 152/99; PULSE 93; RESP 16; O2SAT 100
[2018-01-07 00:37] LABS: TROPONIN I LESS THAN 0.02 NG/ML (0.02-0.05)
[2018-01-07 01:27] VITALS: BP 115/70; PULSE 73; RESP 16; O2SAT 99
[2018-01-07 01:34] VITALS: O2SAT 99
[2018-01-07 03:17] LABS: TROPONIN I LESS THAN 0.02 NG/ML (0.02-0.05)
[2018-01-07 05:38] VITALS: BP 104/60; PULSE 79; RESP 16; O2SAT 100
[2018-01-07] MEDS ORDERED: ONDANSETRON HCL 4 MG/2 ML VIAL IV PUSH PRN (07:45)
[2018-01-07] MEDS ORDERED: ACETAMINOPHEN 500 MG CPLT PO PRN (07:45)
[2018-01-07] MEDS ORDERED: NITROGLYCERIN 0.4 MG SL 25 TABS/BTL SL PRN (07:45)
[2018-01-07] MEDS ORDERED: ASPIRIN 325 MG TAB PO SCH (09:00)
[2018-01-07] MEDS ORDERED: SODIUM CHLORIDE 0.9% FLUSH 10 ML FLUSH IV FLUSH SCH (09:00)
[2018-01-07 11:07] VITALS: BP 120/76; PULSE 67; RESP 18; O2SAT 97
--- NOTE | 2018-01-07 11:54 | HHI.DCPOC ---
Discharge Care Plan Diagnosis: (1) Musculoskeletal chest pain Goals to Promote Your Health * To prevent worsening of your condition and complications * To maintain your health at the optimal level Directions to Meet Your Goals Take your medications as prescribed Follow your dietary instruction Follow activity as directed Keep your appointments as scheduled Take your immunizations and boosters as scheduled If your symptoms worsen call your PCP, if no PCP go to Urgent Care Center or Emergency Room Smoking is Dangerous to Your Health. Avoid second hand smoke Call the 24-hour hour crisis hotline for domestic abuse at [place] [facility] Jan 07, 2018 11:54
--- NOTE | 2018-01-07 12:12 | HHI.HP ---
HPI Service [facility] pain center Primary Care Physician Facility Maintenance Helper is Aydin howell Research Development Manager Dr. Alegria PCP Kerry Upton MD Chief Complaint Palpitations weakness and chest pain History of Present Illness 42-year-old young lady who has previously been evaluated by Dr. 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 Over the last week she has not been feeling well with recurring episodes of weakness and a sense of nausea. She began to experience sharp left chest pain yesterday which she volunteers is very similar to the pain she had many years ago when she had pleuritis. This pain is predominantly behind the left breast is very sharp in nature and was continuous from its onset until the time she presented to the emergency room. The pain was associated with some slight nausea but showed no radiation. The pain was worse with inspiration and was associated with a sense of pounding and skipping in her heart along with a feeling of weakness and dizziness. However historically it is clear that she has been having a great deal of symptomatology related to her documented PVCs and bigeminy. She is very conscious of the extra beats, these frighten her, and she feels weak and uncomfortable when she is having them. She is currently resting comfortably but still quite aware of her arrhythmia. It is also noted and verified by her that she is under considerable stress at work. Review of Systems Consitutional: COMPLAINS OF: Fatigue HEENT: COMPLAINS OF: Lightheadedness Respiratory: COMPLAINS OF: See HPI Cardiovascular: COMPLAINS OF: See HPI Gastrointestinal: COMPLAINS OF: Nausea Past Family Social History Allergies: Coded Allergies: codeine (Unverified Allergy, Severe, Nausea/Vomiting, 01/06/18) Past Medical History Documented bigeminy and PVCs Neurocardiogenic syncope IBS Headaches Depression and anxiety Past Surgical History Cholecystectomy Cyst removal from oral cavity Reported Medications Reported Meds & Active Scripts Active Reported Doxepin (Doxepin HCl) Unknown Strength Cap Unknown Dose PO HS Gabapentin Unknown Strength Cap Unknown Dose PO HS Propranolol (Propranolol HCl) Unknown Strength Tab Unknown Dose PO Q8HR Fluoxetine (Fluoxetine HCl) 20 Mg Tab 30 Mg PO DAILY Pepto-Bismol (Bismuth Subsalicylate) 262 Mg Tab 524 Mg PO TID PRN 30 Days Do not exceed 8 doses in 24 hours. 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 No alcohol tobacco or substance abuse Physical Exam Vital Signs Vital Signs Date Time Temp Pulse Resp B/P (MAP) Pulse Ox O2 Delivery O2 Flow Rate FiO2 01/07/18 11:07 67 18 120/76 (91) 97 Room Air 01/07/18 05:38 79 16 104/60 (75) 100 Room Air 01/07/18 01:34 99 01/07/18 01:27 73 16 115/70 (85) 99 Room Air 01/06/18 23:39 93 16 152/99 (116) 100 Room Air 01/06/18 21:30 85 16 112/56 (74) 99 Room Air 01/06/18 21:29 84 137/63 (87) 112/56 (74) 01/06/18 21:23 100 Room Air 01/06/18 20:56 99.1 94 16 144/86 (105) 99 Room Air Physical Exam Well-nourished well-developed woman resting comfortably with her in the room Head normocephalic atraumatic Eyes PERRLA, EOMI, no scleral or conjunctival injection Neck supple no JVD masses nodes or bruits Chest clear to auscultation with no rales wheezes or rhonchi Cardiovascular bigeminal rhythm with no gallops rubs or murmurs Abdomen is obese soft nontender no guarding or rebound Extremities no clubbing cyanosis or edema Neurologic cranial nerves are intact motor to all 4 extremities is also intact and appears equal Psychologic patient is somewhat anxious but cooperative appears to have no deficit of memory and judgment appears to be intact Laboratory Laboratory Tests Test 01/06/18 19:25 01/06/18 23:30 01/07/18 02:40 White Blood Count 9.6 Red Blood Count 4.23 Hemoglobin 13.3 Hematocrit 38.8 Mean Corpuscular Volume 91.7 Mean Corpuscular Hemoglobin 31.4 Mean Corpuscular Hemoglobin Concent 34.3 Red Cell Distribution Width 13.0 Platelet Count 188 Mean Platelet Volume 9.3 Neutrophils (%) (Auto) 63.1 Lymphocytes (%) (Auto) 28.2 Monocytes (%) (Auto) 7.1 Eosinophils (%) (Auto) 1.0 Basophils (%) (Auto) 0.6 Neutrophils # (Auto) 6.1 Lymphocytes # (Auto) 2.7 Monocytes # (Auto) 0.7 Eosinophils # (Auto) 0.1 Basophils # (Auto) 0.1 CBC Comment DIFF FINAL Differential Comment Prothrombin Time 9.7 Prothromb Time International Ratio 1.0 Activated Partial Thromboplast Time 24.4 Blood Urea Nitrogen 12 Creatinine 0.84 Random Glucose 118 Total Protein 7.7 Albumin 3.9 Calcium Level 9.5 Magnesium Level 2.1 Alkaline Phosphatase 58 Aspartate Amino Transf (AST/SGOT) 18 Alanine Aminotransferase (ALT/SGPT) 18 Total Bilirubin 0.1 Sodium Level 140 Potassium Level 3.4 Chloride Level 107 Carbon Dioxide Level 24.8 Anion Gap 8 Estimat Glomerular Filtration Rate 75 Phosphorus Level 2.2 Total Creatine Kinase 45 68 29 Troponin I LESS THAN 0.02 LESS THAN 0.02 LESS THAN 0.02 Result Diagram: 01/06/18192401/06/181924 Imaging Unremarkable chest x-ray Course Patient is ruled out for ACS has a recent nuclear stress test with which was negative for ischemia and has a very atypical presentation for ischemic pain at this time. Presentation is very suggestive of pleurisy and discussion was carried out regarding treatment for this post discharge. 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 howell Tuesday in the a.m. to set up a follow-up visit with him. Caprini VTE Risk Assessment Caprini VTE Risk Assessment: No/Low Risk (score <= 1) Caprini Risk Assessment Model Point Value = 1 Point Value = 2 Point Value = 3 Point Value = 5 Age 41-60 Minor surgery BMI > 25 kg/m2 Swollen legs Varicose veins or History of unexplained or recurrent spontaneous Oral contraceptives or hormone replacement Sepsis (< 1 month) Serious lung disease, including pneumonia (< 1 month) Abnormal pulmonary function Acute myocardial infarction Congestive heart failure (< 1 month) History of inflammatory bowel disease Medical patient at bed rest Age 61-74 Arthroscopic surgery Major open surgery (> 45 min) Laparoscopic surgery (> 45 min) Malignancy Confined to bed (> 72 hours) Immobilizing plaster cast Central venous access Age >= 75 History of VTE Family history of VTE Factor V Leiden Prothrombin [id number] Lupus anticoagulant Anticardiolipin antibodies Elevated serum homocysteine Heparin-induced thrombocytopenia Other congenital or acquired thrombophilia Stroke (< 1 month) Elective arthroplasty Hip, pelvis, or leg fracture Acute spinal cord injury (< 1 month) Prophylaxis Regimen Total Risk Factor Score Risk Level Prophylaxis Regimen 0-1 Low Early ambulation 2 Moderate Order ONE of the following: *Sequential Compression Device (SCD) *Heparin 5000 units SQ BID 3-4 Higher Order ONE of the following medications: *Heparin 5000 units SQ TID *Enoxaparin/Lovenox 40 mg SQ daily (WT < 150 kg, CrCl > 30 mL/min) *Enoxaparin/Lovenox 30 mg SQ daily (WT < 150 kg, CrCl > 10-29 mL/min) *Enoxaparin/Lovenox 30 mg SQ BID (WT < 150 kg, CrCl > 30 mL/min) AND/OR *Sequential Compression Device (SCD) 5 or more Highest Order ONE of the following medications: *Heparin 5000 units SQ TID (Preferred with Epidurals) *Enoxaparin/Lovenox 40 mg SQ daily (WT < 150 kg, CrCl > 30 mL/min) *Enoxaparin/Lovenox 30 mg SQ daily (WT < 150 kg, CrCl > 10-29 mL/min) *Enoxaparin/Lovenox 30 mg SQ BID (WT < 150 kg, CrCl > 30 mL/min) AND *Sequential Compression Device (SCD) Assessment and Plan Problem List: (1) Musculoskeletal chest pain ICD Codes: R07.89 - Other chest pain Status: Acute Plan: Current pain is most likely pleural or musculoskeletal in nature. She is instructed that she may use nonsteroidal anti-inflammatories and try heat to obtain relief. She is to schedule follow-up with Dr. howell for the first next week so that this can be reevaluated. 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
--- NOTE | 2018-01-07 12:29 | EKG ---
Date Performed: 01/06/2018 Time Performed: 23:40:22 PTAGE: 42 years EKG: Sinus rhythm WITH FREQUENT VENTRICULAR PREMATURE COMPLEXES IN A BIGEMINAL PATTERN MODERATE T-WAVE ABNORMALITY, Ve ntricular bigeminy increased since prior tracing Otherwise no significant change ABNORMAL ECG PREVIOUS TRACING : 07/20/2017 19.45 DOCTOR: Rasheed Valencia Interpretating Date/Time 01/07/2018 12:29:00
--- NOTE | 2018-01-07 12:29 | EKG ---
Date Performed: 01/07/2018 Time Performed: 02:42:39 PTAGE: 42 years EKG: Sinus rhythm NORMAL ECG Bigeminy has resolved otherwise unchanged PREVIOUS TRACING : 01/06/2018 23.40 DOCTOR: Rasheed Valencia Interpretating Date/Time 01/07/2018 12:27:21
--- NOTE | 2018-01-07 12:30 | EKG ---
Date Performed: 01/06/2018 Time Performed: 21:20:11 PTAGE: 42 years EKG: Sinus rhythm WITH OCCASIONAL VENTRICULAR PREMATURE COMPLEXES MODERATE T-WAVE ABNORMALITY, ABNORMAL ECG NO PREVIOUS TRACING DOCTOR: Rasheed Valencia Interpretating Date/Time 01/07/2018 12:29:36
== END 2018-01-09 12:41 | disposition home or self-care (01) ==
LOC: NEPE 20:48 → NEDA 23:16
PROVIDERS: ADMIT Internal Medicine Interventional Cardiology; ATTEND Internal Medicine Interventional Cardiology
DX: R07.89 Other chest pain (principal); I49.3 Ventricular premature depolarization; R00.2 Palpitations; I34.1 Nonrheumatic mitral (valve) prolapse; R06.02 Shortness of breath; R55 Syncope and collapse; K58.9 Irritable bowel syndrome, unspecified; E78.5 Hyperlipidemia, unspecified; R94.31 Abnormal electrocardiogram [ECG] [EKG]; F32.9 Major depressive disorder, single episode, unspecified; Z79.899 Other long term (current) drug therapy
CPT/HCPCS: 71045; 80053; 82550; 83735; 84100; 84484; 84703; 85025; 85610; 85730; 93005; 99285; G0378